=== PATIENT | female | born 1950 | race Caucasian/White ===

== ENCOUNTER → 2017-07-16 | Outpatient (CLI) | payer MEDICARE ==
--- NOTE | 2017-07-19 08:46 | MM ---
Reason for exam: screening (asymptomatic). Last mammogram was performed 2 years and 6 months ago. History: Patient is postmenopausal. Family history of breast cancer in mother at age 52. Physical Findings: A clinical breast exam by your physician is recommended on an annual basis and results should be correlated with mammographic findings. MG 3D Screening Mammo W/Cad Bilateral CC and MLO view(s) were taken. Prior study comparison: January 24, 2015, bilateral MG 3d diag mammo w/cad [facility]. October 24, 2004, mammogram, performed at [facility]. The breast tissue is heterogeneously dense. This may lower the sensitivity of mammography. There are typically benign round dystrophic diffuse and grouped calcifications in both breasts. There is no discrete abnormality. ASSESSMENT: Benign, BI-RAD 2 RECOMMENDATION: Routine screening mammogram of both breasts in 1 year.
== END | disposition home or self-care (01) ==
LOC: RADMAMWWP 10:57
PROVIDERS: ATTEND Family Medicine
DX: Z12.31 Encounter for screening mammogram for malignant neoplasm of breast (principal)
CPT/HCPCS: 77063; 77067

== ENCOUNTER → 2018-07-27 | Outpatient (CLI) | payer MEDICARE ==
--- NOTE | 2018-07-28 09:47 | MM ---
Reason for exam: screening (asymptomatic). Last mammogram was performed 1 year ago. History: Patient is postmenopausal. Family history of breast cancer in mother at age 52. Physical Findings: A clinical breast exam by your physician is recommended on an annual basis and results should be correlated with mammographic findings. MG 3D Screening Mammo W/Cad Bilateral CC and MLO view(s) were taken. Prior study comparison: July 16, 2017, bilateral MG 3d screening mammo w/cad. January 24, 2015, bilateral MG 3d diag mammo w/cad [facility]. The breast tissue is heterogeneously dense. This may lower the sensitivity of mammography. Stable benign calcifications bilaterally. No significant changes when compared with prior studies. ASSESSMENT: Benign, BI-RAD 2 RECOMMENDATION: Routine screening mammogram of both breasts in 1 year.
== END | disposition home or self-care (01) ==
LOC: RADMAMWWP 10:45
PROVIDERS: ATTEND Family Medicine
DX: Z12.31 Encounter for screening mammogram for malignant neoplasm of breast (principal)
CPT/HCPCS: 77063; 77067

== ENCOUNTER 2021-11-11 17:17 | Emergency (ER) | payer MEDICARE ==
--- NOTE | 2021-11-11 18:08 | XR ---
EXAMINATION TYPE: XR knee complete LT DATE OF EXAM: 11/11/2021 COMPARISON: NONE HISTORY: Knee pain TECHNIQUE: 3 views FINDINGS: There is knee joint effusion. There is irregular appearance of the lateral tibial condyle a nd I suspect a tibial plateau fracture with depression. IMPRESSION: There is likely at lateral tibial plateau fracture. Knee joint effusion.
--- NOTE | 2021-11-11 19:07 | ED ---
Extremity Problem HPI - General Chief complaint: Extremity Problem,Nontraumatic Stated complaint: lt knee pain Time Seen by Provider: 11/11/21 18:34 Source: patient, RN notes reviewed Mode of arrival: ambulatory Limitations: no limitations - History of Present Illness Initial comments: Patient is a 71-year-old male presenting to the emergency room with complaints of sudden onset of left knee pain radiating to her lower extremity. She denies any aggravating factors but does report that the symptoms seemed more severe when attempting to get out of a chair. She denies any range of motion impairment or weakness is not related to body habitus, swelling, or pain. She denies any trauma or wounds. She has not had any previous problems with her knees but does admit to being very overweight not being beneficial to them. She denies any other complaints or concerns including any chest pain, shortness of breath, abdominal pain, nausea, vomiting, fevers or chills. She has a past medical history significant for hypertension, hyperlipidemia and hypothyroidism. - Related Data Home Medications Medication Instructions Recorded Confirmed Aspirin [Adult Low Dose Aspirin EC] 81 mg PO DAILY 02/27/15 11/11/21 Atorvastatin [Lipitor] 10 mg PO W/LUNCH 02/27/15 11/11/21 Levothyroxine Sodium [Synthroid] 75 mcg PO DAILY 02/27/15 11/11/21 Lisinopril-Hctz 20-12.5 mg 1 tab PO HS 02/27/15 11/11/21 [Zestoretic 20-12.5] Multivitamins, Thera [Theragran] 1 tab PO DAILY 02/27/15 11/11/21 Vitamin E (Dl,Tocopheryl Acet) 400 unit PO DAILY 02/27/15 11/11/21 [Vitamin E] Cholecalciferol [Vitamin D3 (25 25 mcg PO DAILY 11/11/21 11/11/21 Mcg = 1000 Iu)] amLODIPine [Norvasc] 10 mg PO DAILY 11/11/21 11/11/21 Allergies Allergy/AdvReac Type Severity Reaction Status Date / Time No Known Allergies Allergy Verified 11/11/21 19:07 Review of Systems ROS Statement: Those systems with pertinent positive or pertinent negative responses have been documented in the HPI. ROS Other: All systems not noted in ROS Statement are negative. Past Medical History Past Medical History: Hyperlipidemia, Hypertension, Thyroid Disorder History of Any Multi-Drug Resistant Organisms: None Reported Past Surgical History: Cholecystectomy, Orthopedic Surgery, Tonsillectomy Additional Past Surgical History / Comment(s): ORIF RT ARM. LIVER BIOPSY Past Anesthesia/Blood Transfusion Reactions: Postoperative Nausea & Vomiting (PONV) Past Psychological History: No Psychological Hx Reported Smoking Status: Never smoker Past Alcohol Use History: None Reported Past Drug Use History: None Reported - Past Family History Mother Family Medical History: Cancer Sister(s) Family Medical History: Cancer Brother(s) Family Medical History: Cancer General Exam Limitations: no limitations General appearance: alert, in no apparent distress Head exam: Present: atraumatic, normocephalic, normal inspection Eye exam: Present: normal appearance, PERRL, EOMI. Absent: scleral icterus, conjunctival injection, periorbital swelling ENT exam: Present: normal exam, mucous membranes moist Neck exam: Present: normal inspection Respiratory exam: Present: normal lung sounds bilaterally. Absent: respiratory distress, wheezes, rales, rhonchi, stridor Cardiovascular Exam: Present: regular rate, normal rhythm, normal heart sounds. Absent: systolic murmur, diastolic murmur, rubs, gallop, clicks GI/Abdominal exam: Present: soft, normal bowel sounds. Absent: distended, tenderness, guarding, rebound, rigid Left Knee exam: Present: full ROM, tenderness (Posterior.), swelling, full knee extension. Absent: deformity, crepitus, dislocation, erythema Lower Leg exam: Present: swelling. Absent: tenderness Gait: observed and limited by pain Back exam: Present: normal inspection Neurological exam: Present: alert, oriented X3, CN II-XII intact Psychiatric exam: Present: normal affect, normal mood Skin exam: Present: warm, dry, intact, normal color. Absent: rash Course Vital Signs 11/11/21 11/11/21 17:42 21:34 Temperature 98.5 F 98.2 F Pulse Rate 87 86 Respiratory 20 18 Rate Blood Pressure 150/76 148/78 O2 Sat by Pulse 98 98 Oximetry Medical Decision Making - Medical Decision Making 71-year-old female with left knee pain radiating to her lower extremity. Will begin with x-ray of the left knee and proceed for further di agnostic imaging. The swelling noted however no redness. X-ray right knee negative for acute findings will proceed with CT of the left knee along with Doppler in the setting of acute onset of pain and swelling. CT of the knee negative for acute findings. Doppler not notes posterior cyst (Sawant's cyst) at the location of the start of her pain. Discussed Sawant's cyst findings with patient and treatment protocols. Encouraged range of motion and follow-up with her primary care provider. Avoid advised use of NSAIDs for pain as needed. Case discussed with Dr. Street. Disposition Clinical Impression: Synovial cyst of popliteal space [Sawant], left knee Disposition: HOME SELF-CARE Condition: Stable Instructions (If sedation given, give patient instructions): Sawant Cyst (ED) Additional Instructions: Please utilize Tylenol or ibuprofen [id number] as needed for pain. Please follow-up with your primary care provider. Range of motion and ambulating as tolerated encouraged. Please return to the Emergency Department if symptoms worsen or any other concerns. Is patient prescribed a controlled substance at d/c from ED?: No Referrals: Jose Enrique Franco MD [Primary Care Provider] - 1-2 days Time of Disposition: 21:17
[2021-11-11] MEDS ORDERED: MORPHINE SULFATE 2 MG/ML SYRINGE IM STA (19:13)
--- NOTE | 2021-11-11 19:15 | CT ---
EXAMINATION TYPE: CT knee LT wo con DATE OF EXAM: 11/11/2021 COMPARISON: None HISTORY: pain. no known injury CT DLP: 377.1 mGycm Automated exposure control for dose reduction was used. Images obtained from the distal femur to the proximal tibia with no contrast. There is a moderate knee joint effusion. The patella is intact. The proximal tibia is intact. No evid ence of tibial plateau fracture. There is some spurring of the femoral and tibial condyles. Distal fe mur is intact. IMPRESSION: There is knee joint effusion. No evidence of tibial plateau fracture. There is some hypertrophic mild osteoarthritis.
--- NOTE | 2021-11-11 20:51 | US ---
EXAMINATION TYPE: US venous doppler duplex LE LT DATE OF EXAM: 11/11/2021 8:44 PM COMPARISON: NONE CLINICAL HISTORY: pain swelling no injury. left leg pain SIDE PERFORMED: Left TECHNIQUE: The lower extremity deep venous system is examined utilizing real time linear array sonog danie with graded compression, doppler sonography and color-flow sonography. VESSELS IMAGED: Common Femoral Vein Deep Femoral Vein Greater Saphenous Vein * Femoral Vein Popliteal Vein Small Saphenous Vein * Proximal Calf Veins (* superficial vessels) Left Leg: Negative for DVT. Sawant's cyst seen in pop fossa measuring 4.1 x 3.7 x 2.0 cm. IMPRESSION: There is a popliteal cyst. No evidence of deep vein thrombosis in the left leg
[2021-11-11 21:35] VITALS: BP 148/78; PULSE 86; RESP 18; TEMP 98.2
== END 2021-11-11 21:34 | disposition home or self-care (01) ==
LOC: EC 17:17
DX: M71.30 Other bursal cyst, unspecified site (principal); E78.5 Hyperlipidemia, unspecified; I10 Essential (primary) hypertension; E07.9 Disorder of thyroid, unspecified; Z79.899 Other long term (current) drug therapy
CPT/HCPCS: 73562; 93971; 73700; 99284; 96372; J2270

== ENCOUNTER → 2022-03-11 | Day surgery (SDC) | payer MEDICARE ==
[2022-03-09 13:39] VITALS: BMI 50.0
[~2022-03-11] MED LIST: LACTATED RINGERS 1,000 ML IV SCH; PROPOFOL 10 MG/ML 20 ML VIAL IV ONE
--- NOTE | 2022-03-11 07:51 | P.GSHP ---
History of Present Illness H&P Date: 03/11/22 CHIEF COMPLAINT: Colon screen HISTORY OF PRESENT ILLNESS: The patient is a 71-year-old female who presents for colon screen. Lower endoscopy was offered for further evaluation and management. PAST MEDICAL HISTORY: Please see list. PAST SURGICAL HISTORY: Please see list. MEDICATIONS: Please see list. ALLERGIES: Please see list. SOCIAL HISTORY: No illicit drug use FAMILY HISTORY: No reports of Crohn disease or ulcerative colitis. REVIEW OF ORGAN SYSTEMS: CONSTITUTIONAL: No reports of fevers or chills. PHYSICAL EXAM: VITAL SIGNS: Stable GENERAL: Well-developed pleasant in no acute distress. HEENT: No scleral icterus. Extraocular movements grossly intact. Moist buccal mucosa. NECK: Supple without lymphadenopathy. CHEST: Unlabored respirations. Equal bilateral excursions. CARDIOVASCULAR: Regular rate and rhythm. Distal 2+ pulses. ABDOMEN: Soft, nontender, nondistended. MUSCULOSKELETAL: No clubbing, cyanosis, or edema. ASSESSMENT: 1. Colon screen. PLAN: 1. Recommend proceeding with a lower endoscopy Past Medical History Past Medical History: Hyperlipidemia, Hypertension, Osteoarthritis (OA), Thyroid Disorder History of Any Multi-Drug Resistant Organisms: None Reported Past Surgical History: Cholecystectomy, Orthopedic Surgery, Tonsillectomy Additional Past Surgical History / Comment(s): ORIF RIGHT ARM, LIVER BIOPSY, bilateral cataract surgery, colonoscopy. Past Anesthesia/Blood Transfusion Reactions: Postoperative Nausea & Vomiting (PONV) Past Psychological History: No Psychological Hx Reported Smoking Status: Never smoker Past Alcohol Use History: None Reported Past Drug Use History: None Reported - Past Family History Mother Family Medical History: Cancer Sister(s) Family Medical History: Cancer Brother(s) Family Medical History: Cancer, Pulmonary Embolus Medications and Allergies Home Medications Medication Instructions Recorded Confirmed Type Aspirin [Adult Low Dose Aspirin EC] 81 mg PO DAILY 02/27/15 03/09/22 History Atorvastatin [Lipitor] 10 mg PO DAILY@1100 02/27/15 03/09/22 History Levothyroxine Sodium [Synthroid] 75 mcg PO DAILY@1100 02/27/15 03/09/22 History Lisinopril-Hctz 20-12.5 mg 1 tab PO DAILY@1100 02/27/15 03/09/22 History [Zestoretic 20-12.5] Multivitamins, Thera [Theragran] 1 tab PO DAILY 02/27/15 03/09/22 History Vitamin E (Dl,Tocopheryl Acet) 400 unit PO DAILY 02/27/15 03/09/22 History [Vitamin E] Cholecalciferol [Vitamin D3 (25 25 mcg PO DAILY 11/11/21 03/09/22 History Mcg = 1000 Iu)] amLODIPine [Norvasc] 10 mg PO DAILY@1100 11/11/21 03/09/22 History Allergies Allergy/AdvReac Type Severity Reaction Status Date / Time No Known Allergies Allergy Verified 03/09/22 13:27
[2022-03-11 08:12] VITALS: TEMP 98.2
[2022-03-11 08:52] VITALS: RESP 16
[2022-03-11 09:02] VITALS: BP 144/71; PULSE 73
--- NOTE | 2022-03-11 09:07 | P.PCN ---
Date of Procedure: 03/11/22 Description of Procedure: PREOPERATIVE DIAGNOSIS: Personal history of colon polyps POSTOPERATIVE DIAGNOSIS: Tubular adenoma ascending colon Tubular adenoma transverse colon Pain and diverticulosis Internal hemorrhoids, grade 3 OPERATION: Colonoscopy to the ileocecal valve and appendiceal orifice, cecum Colonoscopy with hot snare polypectomy Colonoscopy with cold forceps biopsy SURGEON: Charmaine Lin MD. ANESTHESIA: MAC. INDICATIONS: The patient is an 64-year-old male who presents family history of malignant colon polyps and personal history of colon polyps. Last colonoscopy 5 years. Benefits and risks were described and informed consent was obtained. DESCRIPTION OF PROCEDURE: The patient had undergone Miralax prep. The patient had been brought into the operating room and laid in the left lateral decubitus position. After adequate intravenous sedation, the rectum was examined with 2% lidocaine jelly. External hemorrhoids were encountered. The rectal tone was within normal limits. No lesions were palpated in the rectal vault. An Olympus colonoscope was advanced until the cecum, ileocecal valve and appendiceal orifice were clearly viewed. The prep was good. Sigmoid diverticulosis with pandiverticulosis was encountered. Colonic polyps were found and removed. No evidence of focal colitis was found. Retroflexion of the scope demonstrated grade 3 internal hemorrhoids without active bleeding or inflammation. The colon was desufflated. The patient had tolerated the procedure well. Withdrawal time was over 6 minutes. FINDINGS: Aronchick preparation quality scale 2 (1-5) Internal hemorrhoids, grade 3 External hemorrhoids, grade 3. No arteriovenous malformations. Sigmoid diverticulosis with pandiverticulosis Removal of 2 polyps: - Cold forceps biopsy at ascending colon, 4 mm polyp. - Cold forceps biopsy at mid transverse colon, 5 mm polyp. No focal colitis. RECOMMENDATIONS: Repeat colonoscopy 3 years, 2024 Plan - Discharge Summary Discharge Rx Participant: No New Discharge Prescriptions: Continue Vitamin E (Dl,Tocopheryl Acet) [Vitamin E (400 Iu = 180 mg)] 400 unit PO DAILY Lisinopril-Hctz 20-12.5 mg [Zestoretic 20-12.5] 1 tab PO DAILY@1100 Levothyroxine Sodium [Synthroid] 75 mcg PO DAILY@1100 Atorvastatin [Lipitor] 10 mg PO DAILY@1100 Multivitamins, Thera [Multivitamin (formulary)] 1 tab PO DAILY Aspirin [Adult Low Dose Aspirin EC] 81 mg PO DAILY Cholecalciferol [Vitamin D3 (25 Mcg = 1000 Iu)] 25 mcg PO DAILY amLODIPine [Norvasc] 10 mg PO DAILY@1100 Discharge Medication List Aspirin [Adult Low Dose Aspirin EC] 81 mg PO DAILY 02/27/15 [History] Atorvastatin [Lipitor] 10 mg PO DAILY@1100 02/27/15 [History] Levothyroxine Sodium [Synthroid] 75 mcg PO DAILY@1100 02/27/15 [History] Lisinopril-Hctz 20-12.5 mg [Zestoretic 20-12.5] 1 tab PO DAILY@1100 02/27/15 [History] Multivitamins, Thera [Multivitamin (formulary)] 1 tab PO DAILY 02/27/15 [History] Vitamin E (Dl,Tocopheryl Acet) [Vitamin E (400 Iu = 180 mg)] 400 unit PO DAILY 02/27/15 [History] Cholecalciferol [Vitamin D3 (25 Mcg = 1000 Iu)] 25 mcg PO DAILY 11/11/21 [History] amLODIPine [Norvasc] 10 mg PO DAILY@1100 11/11/21 [History] Follow up Appointment(s)/Referral(s): Charmaine Lin MD [STAFF PHYSICIAN] - As Needed Patient Instructions/Handouts: *Surgery [facility] - (Anesthesia) Endoscopy Discharge Instructions, Diverticulosis (ED), Colorectal Polyps (GEN), Diverticulosis Diet (GEN), Colonoscopy (DC), Upper Endoscopy (DC) Activity/Diet/Wound Care/Special Instructions: Repeat colonoscopy 3 years, 2024 Discharge Disposition: HOME SELF-CARE
== END | disposition home or self-care (01) ==
LOC: ORWHC2ENDO 07:38
PROVIDERS: ATTEND Surgery Plastic and Reconstructive Surgery
DX: Z12.11 Encounter for screening for malignant neoplasm of colon (principal); D12.2 Benign neoplasm of ascending colon; K57.30 Diverticulosis of large intestine without perforation or abscess without bleeding; K64.2 Third degree hemorrhoids; I10 Essential (primary) hypertension; E78.5 Hyperlipidemia, unspecified; M19.90 Unspecified osteoarthritis, unspecified site; E07.9 Disorder of thyroid, unspecified; Z90.89 Acquired absence of other organs; Z90.49 Acquired absence of other specified parts of digestive tract; Z86.010 Personal history of colon polyps; Z80.0 Family history of malignant neoplasm of digestive organs; Z79.82 Long term (current) use of aspirin; Z79.899 Other long term (current) drug therapy
CPT/HCPCS: 45385; 88305; 45380; J2704

== ENCOUNTER → 2024-01-18 | Outpatient (CLI) | payer MEDICARE ==
--- NOTE | 2024-01-19 18:35 | US ---
EXAMINATION TYPE: US kidneys/renal and bladder DATE OF EXAM: 01/18/2024 COMPARISON: NONE CLINICAL INDICATION: Female, 73 years old with history of N18.4 CHRONIC KIDNEY STAGE 4; Nausea - on l asix for BL LE swelling TECHNIQUE: Grayscale imaging of the bilateral kidneys and urinary bladder: FINDINGS: EXAM MEASUREMENTS: Right Kidney: 12.6 x 6.4 x 5.4 cm Left Kidney: 10.4 x 6.3 x 4.8 cm Post Void Residual Volume: NA mL Right Kidney: Anechoic cystic structures noted - otherwise WNL . The largest measures 2 x 2.4 x 2.3 cm in the mid right kidney Left Kidney: Anechoic cystic structures noted - otherwise WNL Bladder: WNL Bilateral Jets seen: Yes Normal Post Void Residual: NA There is no evidence for hydronephrosis at this point in time. No nephrolithiasis is seen. No judit s are identified. The urinary bladder is anechoic. Incidental - ? cystic structure on left ovary . This measures 4.9 x 3.8 IMPRESSION: 1. Bilateral renal cysts. 2. Left ovarian cyst likely present. [facility], , 01/19/2024 6:32 PM
== END | disposition home or self-care (01) ==
LOC: RADUSWWP 11:12
PROVIDERS: ATTEND Family Medicine
DX: N18.4 Chronic kidney disease, stage 4 (severe) (principal); N28.1 Cyst of kidney, acquired; N83.202 Unspecified ovarian cyst, left side
CPT/HCPCS: 76770

== ENCOUNTER 2024-07-05 18:05 | Inpatient (IN) | payer MEDICARE ==
[2024-07-05 20:47] LABS: Basophils # (A) 0.02 10*3/uL (0.00-0.10); Basophils % (A) 0.2 %; Eosinophils # (A) 0.52 10*3/uL (0.04-0.35); HCT 25.8 % (37.2-46.3); HGB 8.8 g/dL (12.0-15.0); Lymphocytes # (A) 1.23 10*3/uL (0.90-5.00); Lymphocytes % (A) 11.8 %; MCH 29.6 pg (27.0-32.0); MCHC 34.1 g/dL (32.0-37.0); MCV 86.9 fL (80.0-97.0); Mean Platelet Volume 11.2 fL (9.5-12.2); Monocytes # (A) 0.58 10*3/uL (0.20-1.00); Monocytes % (A) 5.6 %; Neutrophils # (A) 8.06 10*3/uL (1.80-7.70); Neutrophils % (A) 77.1 %; Platelet Count 164 10*3/uL (140-440); RBC 2.97 10*6/uL (4.10-5.20); RDW 13.8 % (11.5-14.5); WBC 10.44 10*3/uL (4.50-10.00)
[2024-07-05 20:59] LABS: ALT 32 U/L (4-34); AST 25 U/L (14-36); African American GFR (CKD) 15 (>60 ml/min/1.73 sqM); Albumin 4.2 g/dL (3.5-5.0); Alkaline Phosphatase 82 U/L (38-126); Anion Gap 16 mmol/L; Carbon Dioxide 12 mmol/L (22-30); Chloride 109 mmol/L (98-107); Glucose 91 mg/dL (74-99); Non-African American GFR(CKD) 13 (>60 ml/min/1.73 sqM); Sodium 137 mmol/L (137-145); Total Bilirubin 1.7 mg/dL (0.2-1.3); Total Protein 7.7 g/dL (6.3-8.2)
[2024-07-05 21:13] LABS: Blood Urea Nitrogen 104 mg/dL (7-17); Potassium 6.2 mmol/L (3.5-5.1)
[2024-07-05] MEDS: DEXTROSE 10% IN WATER 500 ML in EMPTY BAG 1 BAG IV SCH (22:01)
[2024-07-05] MEDS: ALBUTEROL NEB (CONC) 2.5 MG/0.5 ML INHALATION ONE (22:04)
[2024-07-05] MEDS: DEXTROSE 50% SYRINGE 50 ML IVP ONE (22:06)
[2024-07-05] MEDS: INSULIN REGULAR 100 UNIT/ML VIAL (IV) IV ONE (22:07)
[2024-07-05] MEDS: SODIUM ZIRCONIUM CYCLOSILICATE 10 GM PACKET PO ONE (22:16)
[2024-07-05] MEDS: SODIUM BICARB 8.4% 50 ML SYR (1 MEQ/ML) IV STA ×2 (22:18)
--- NOTE | 2024-07-05 22:26 | CT ---
EXAMINATION TYPE: CT abdomen pelvis wo con DATE OF EXAM: 07/05/2024 10:01 PM COMPARISON: CT abdomen pelvis most recent from 11/04/2010. CLINICAL INDICATION: Female, 74 years old with history of hematochezia, acute renal failure; Hematoch ezia, acute renal failure. TECHNIQUE: Axial CT abdomen pelvis wo con;Sagittal and coronal reformats were created on a separate workstation. Contrast used: mL of , (none if empty) Oral contrast used: without Oral Contrast (none if empty) CT DLP: 1461.7 mGycm, Automated exposure control for dose reduction was used. FINDINGS: LOWER CHEST: simple appearing cyst in the right lower lung. ABDOMEN LIVER: Unremarkable GALLBLADDER AND BILE DUCTS: The gallbladder surgically absent. PANCREAS: Unremarkable. SPLEEN: Unremarkable. ADRENAL GLANDS: Fat-containing lesion within the left renal gland measuring 16 mm. KIDNEYS AND URETERS: No evidence of hydronephrosis or obstructing renal calculus. The ureters are unr emarkable. 23 mm renal cortical cyst on the right no follow-up recommended. 23 mm renal cortical c yst on the right no follow-up recommended. PELVIS BLADDER: No evidence for wall thickening or mass given limitations of exam. REPRODUCTIVE:Left ovarian cyst measuring up to 44 mm. ABDOMEN & PELVIS STOMACH AND BOWEL: No evidence of bowel obstruction. PERITONEUM/RETROPERITONEUM: No evidence of pneumoperitoneum or free fluid. VASCULATURE: No evidence of aortic aneurysm. MUSCULOSKELETAL: No acute osseous abnormalities. Moderate disc degeneration changes are present throu ghout the thoracolumbar spine. Grade 1 anterolisthesis of L3 on L4. LYMPH NODES: No gross evidence for lymphadenopathy. SOFT TISSUE/ABDOMINAL WALL: Unremarkable IMPRESSION: 1. High density layering debris within the cecum and ascending colon concerning for gastrointestinal hemorrhage. Surgical consultation recommended. 2. Left adrenal myelolipoma no follow-up recommended. 3. Left ovarian cyst measuring up to 44 mm. Consider follow-up with ultrasound imaging for stability . Findings communicated to Nirav Holland PAC on 07/05/2024 10:[address] Leonel Fortune [facility], , 07/05/2024 10:24 PM
[2024-07-05] MEDS: CALCIUM GLUCONATE IN NACL 1 GM in SALINE 1 100ML.BAG IVPB ONE (22:53)
[2024-07-05] MEDS: DEXTROSE 5% IN WATER 1,000 ML with SODIUM BICARB (1 MEQ/ML) 150 ML IV SCH (23:01)
[2024-07-05] MEDS ORDERED: NALOXONE 0.4 MG/ML 1 ML VIAL IV PRN (23:11)
--- NOTE | 2024-07-05 23:16 | ED ---
GI Bleed HPI - General Chief complaint: GI Bleed Stated complaint: Bleeding from the rectum Time Seen by Provider: 07/05/24 18:23 Source: patient Mode of arrival: wheelchair Limitations: no limitations - History of Present Illness Initial comments: 74-year-old female with history of hypertension, hyperlipidemia, hypothyroidism, presenting with chief complaint of rectal bleeding. Patient reports that today she had a large amount of blood in the toilet. She then took a shower and afterwards noted continued bleeding. She reports that she has had some intermittent rectal bleeding for few weeks now. She thought nothing of it as often times she would only see blood on the toilet paper and she has a known history of hemorrhoids. She does get some rectal pain when having a bowel movement. She denies any abdominal pain. No blood thinners. She does take aspirin 81 mg. No nausea or vomiting. No fevers or chills. No urinary symptoms. No chest pain or difficulty breathing. No weakness or dizziness. - Related Data Home Medications Medication Instructions Recorded Confirmed Levothyroxine Sodium [Synthroid] 75 mcg PO [id number] 02/27/15 07/06/24 Acetaminophen Tab [Tylenol Tab] 1,000 mg PO Q6HR PRN 07/06/24 07/06/24 Atorvastatin Calcium [Lipitor] 40 mg PO W/SUPPER 07/06/24 07/06/24 Furosemide [Lasix] 20 mg PO HS 07/06/24 07/06/24 Semaglutide [Ozempic] 0.25 mg SQ TU 07/06/24 07/06/24 Spironolactone [Aldactone] 50 mg PO HS 07/06/24 07/06/24 lisinopriL [Zestril] 10 mg PO W/SUPPER 07/06/24 07/06/24 Allergies Allergy/AdvReac Type Severity Reaction Status Date / Time No Known Allergies Allergy Verified 07/06/24 08:40 Review of Systems ROS Statement: Those systems with pertinent positive or pertinent negative responses have been documented in the HPI. ROS Other: All systems not noted in ROS Statement are negative. Past Medical History Past Medical History: Hyperlipidemia, Hypertension, Osteoarthritis (OA), Thyroid Disorder History of Any Multi-Drug Resistant Organisms: None Reported Past Surgical History: Cholecystectomy, Orthopedic Surgery, Tonsillectomy Additional Past Surgical History / Comment(s): ORIF RIGHT ARM, LIVER BIOPSY, bilateral cataract surgery, colonoscopy. Past Anesthesia/Blood Transfusion Reactions: Postoperative Nausea & Vomiting (PONV) Past Psychological History: No Psychological Hx Reported Smoking Status: Never smoker Past Alcohol Use History: None Reported Past Drug Use History: None Reported - Past Family History Mother Family Medical History: Cancer Sister(s) Family Medical History: Cancer Brother(s) Family Medical History: Cancer, Pulmonary Embolus General Exam Limitations: no limitations General appearance: alert, in no apparent distress Head exam: Present: atraumatic, normocephalic, normal inspection Eye exam: Present: normal appearance, EOMI Neck exam: Present: normal inspection. Absent: meningismus Respiratory exam: Present: normal lung sounds bilaterally. Absent: respiratory distress, wheezes, rales, rhonchi, stridor Cardiovascular Exam: Present: regular rate, normal rhythm, normal heart sounds. Absent: systolic murmur, diastolic murmur, rubs, gallop, clicks GI/Abdominal exam: Present: soft. Absent: distended, tenderness, guarding, rebound, rigid Rectal exam: Present: normal rectal tone, heme (+) stool, bloody stool, hemor rhoids Neurological exam: Present: alert, oriented X3 Psychiatric exam: Present: normal affect, normal mood Skin exam: Present: warm, dry, normal color Course Vital Signs 07/05/24 07/05/24 07/05/24 18:06 22:06 22:16 Temperature 97.9 F Pulse Rate 97 100 98 Respiratory 18 Rate Blood Pressure 141/76 O2 Sat by Pulse 99 Oximetry 07/05/24 07/06/24 07/06/24 23:12 02:33 04:31 Temperature 98.6 F 98.5 F Pulse Rate 96 81 78 Respiratory 19 19 15 Rate Blood Pressure 114/50 96/44 138/58 O2 Sat by Pulse 97 97 96 Oximetry 07/06/24 07/06/24 07/06/24 06:26 08:22 12:40 Temperature 98.4 F Pulse Rate 79 77 76 Respiratory 18 18 18 Rate Blood Pressure 102/53 122/42 109/67 O2 Sat by Pulse 98 99 96 Oximetry 07/06/24 07/06/24 16:38 18:04 Temperature 97.9 F 98.1 F Pulse Rate 85 85 Respiratory 20 18 Rate Blood Pressure 104/51 104/42 O2 Sat by Pulse 97 100 Oximetry Medical Decision Making - Medical Decision Making 74-year-old female presenting with chief complaint of rectal bleeding. Has been ongoing intermittently for a few weeks but seem to be acutely worse today. History and physical examination are conducted. Patient does have hemorrhoids on rectal exam and there is cornelio blood seen. Hemoglobin 8.8. Hemodynamically stable. BUN 104 creatinine 3.22 GFR 13. No previous values for comparison. Patient does report that she has had a history of chronic kidney disease that her PCP attributes to putting her on a water pill. She states that she has been on and off of the water pill for her swelling when it affects her renal function. She currently takes furosemide and spironolactone. Patient started on 2 mEq of bicarb IV push and 3 A of bicarb on the drip at 100 mL/h per nephrology. Potassium 6.2, she is given insulin and dextrose, albuterol, Lokelma. CT shows evidence of high density layering debris within the cecum and ascending colon concerning for gastrointestinal hemorrhage. Patient will be admitted. Consults are placed to GI and nephrology. Patient is agreeable with this plan. I discussed this case with my attending Dr. Ruvalcaba Was pt. sent in by a medical professional or institution (, PA, EVAPORATOR REPAIRER, urgent care, hospital, or skilled nursing...) When possible be specific @ -No Did you speak to anyone other than the patient for history (EMS, parent, family, police, friend...)? What history was obtained from this source @ -No Did you review nursing and triage notes (agree or disagree)? Why? @ -I reviewed and agree with nursing and triage notes Were old charts reviewed (outside hosp., previous admission, EMS record, old EKG, old radiological studies, urgent care reports/EKG's, skilled nursing records)? Report findings @ -No old charts were reviewed Differential Diagnosis (chest pain, altered mental status, abdominal pain women, abdominal pain men, vaginal bleeding, weakness, fever, dyspnea, syncope, headache, dizziness, GI bleed, back pain, seizure, CVA, palpatations, mental health, musculoskeletal)? @ -MDM Differential GI Bleed: Esophageal varices, aortoenteric fistula, Alisia-Hamilton, gastritis, peptic ulcer disease, diverticulosis, inflammatory bowel disease, hemorrhoids, fissure, colitis, malignancy, Meckel’s diverticulum… this is not meant to be an all-inclusive list. EKG interpreted by me (3pts min.). @ -As above X-rays interpreted by me (1pt min.). @ -None done CT interpreted by me (1pt min.). @ -CT shows high density layering debris within the cecum and ascending colon concerning for gastrointestinal hemorrhage. Surgical consultation recommended. 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 Left ovarian cyst measuring up to 44 mm. Consider follow-up with ultrasound imaging for stability U/S interpreted by me (1pt. min.). @ -None done What testing was considered but not performed or refused? (CT, X-rays, U/S, labs)? Why? @ -None What meds were considered but not given or refused? Why? @ -None Did you discuss the management of the patient with other professionals (professionals i.e. , PA, EVAPORATOR REPAIRER, lab, RT, psych nurse, bilingual social worker, schedule checker, teacher, chief lifestyle officer, transplant case manager)? Give summary @ -Spoke with Dr. Ariza who accepts admission Was smoking cessation discussed for >3mins.? @ -No Was critical care preformed (if so, how long)? @ -No Were there social determinants of health that impacted care today? How? (Dieter elessness, low income, unemployed, alcoholism, drug addiction, transportation, low edu. Level, literacy, decrease access to med. care, fpc, rehab)? @ -No Was there de-escalation of care discussed even if they declined (Discuss DNR or withdrawal of care, Hospice)? DNR status @ -No What co-morbidities impacted this encounter? (DM, HTN, Smoking, COPD, CAD, Cancer, CVA, ARF, Chemo, Hep., AIDS, mental health diagnosis, sleep apnea, morbid obesity)? @ -None Was patient admitted / discharged? Hospital course, mention meds given and route, prescriptions, significant lab abnormalities, going to OR and other pertinent info. @ -Admitted, see above for details Undiagnosed new problem with uncertain prognosis? @ -No Drug Therapy requiring intensive monitoring for toxicity (Heparin, Nitro, Insulin, Cardizem)? @ -No Were any procedures done? @ -No Diagnosis/symptom? @ -GI bleed, acute renal failure Acute, or Chronic, or Acute on Chronic? @ -Acute Uncomplicated (without systemic symptoms) or Complicated (systemic symptoms)? @ -Complicated Side effects of treatment? @ -No Exacerbation, Progression, or Severe Exacerbation? @ -No Poses a threat to life or bodily function? How? (Chest pain, [place], [place], pneumonia, PE, COPD, DKA, ARF, appy, cholecystitis, CVA, Diverticulitis, Homicidal, Suic idal, threat to staff... and all critical care pts) @ -Yes - Lab Data Result diagrams: 07/06/24 14:58 07/06/24 14:58 Lab Results 07/05/24 07/05/24 07/05/24 Range/Units 19:06 20:33 20:33 WBC 10.44 H (4.50-10.00) 10*3/uL RBC 2.97 L (4.10-5.20) 10*6/uL Hgb 8.8 L (12.0-15.0) g/dL Hct 25.8 L (37.2-46.3) % MCV 86.9 (80.0-97.0) fL MCH 29.6 (27.0-32.0) pg MCHC 34.1 (32.0-37.0) g/dL Plt Count 164 (140-440) 10*3/uL MPV 11.2 (9.5-12.2) fL Immature Gran % (Auto) 0.3 % Neutrophils % 77.1 % Lymphocytes % 11.8 % Monocytes % 5.6 % Eosinophils % 5.0 % Basophils % 0.2 % Immature Gran # 0.03 (0.00-0.04) 10*3/uL Neutrophils # 8.06 H (1.80-7.70) 10*3/uL Lymphocytes # 1.23 (0.90-5.00) 10*3/uL Monocytes # 0.58 (0.20-1.00) 10*3/uL Eosinophils # 0.52 H (0.04-0.35) 10*3/uL Basophils # 0.02 (0.00-0.10) 10*3/uL PT (10.0-12.5) sec INR (<1.2) APTT (22.0-30.0) sec Sodium 137 (137-145) mmol/L Potassium 6.2 H* (3.5-5.1) mmol/L Chloride 109 H (98-107) mmol/L Carbon Dioxide 12 L (22-30) mmol/L Anion Gap 16 mmol/L BUN 104 H* (7-17) mg/dL Creatinine 3.22 H (0.52-1.04) mg/dL Est GFR (CKD-EPI)AfAm 15 (>60 ml/min/1.73 sqM) Est GFR (CKD-EPI)NonAf 13 (>60 ml/min/1.73 sqM) Glucose 91 (74-99) mg/dL Calcium 10.0 (8.4-10.2) mg/dL Total Bilirubin 1.7 H (0.2-1.3) mg/dL AST 25 (14-36) U/L ALT 32 (4-34) U/L Alkaline Phosphatase 82 (38-126) U/L Total Protein 7.7 (6.3-8.2) g/dL Albumin 4.2 (3.5-5.0) g/dL Urine Color Urine Appearance (Clear) Urine pH (5.0-8.0) Ur Specific [place] (1.001-1.035) Urine Protein (Negative) Urine Glucose (UA) (Negative) Urine Ketones (Negative) Urine Blood (Negative) Urine Nitrite (Negative) Urine Bilirubin (Negative) Urine Urobilinogen (<2.0) mg/dL Ur Leukocyte Esterase (Negative) Stool Occult Blood Positive H (Negative) 07/05/24 07/05/24 Range/Units 23:08 23:08 WBC (4.50-10.00) 10*3/uL RBC (4.10-5.20) 10*6/uL Hgb (12.0-15.0) g/dL Hct (37.2-46.3) % MCV (80.0-97.0) fL MCH (27.0-32.0) pg MCHC (32.0-37.0) g/dL Plt Count (140-440) 10*3/uL MPV (9.5-12.2) fL Immature Gran % (Auto) % Neutrophils % % Lymphocytes % % Monocytes % % Eosinophils % % Basophils % % Immature Gran # (0.00-0.04) 10*3/uL Neutrophils # (1.80-7.70) 10*3/uL Lymphocytes # (0.90-5.00) 10*3/uL Monocytes # (0.20-1.00) 10*3/uL Eosinophils # (0.04-0.35) 10*3/uL Basophils # (0.00-0.10) 10*3/uL PT 10.9 (10.0-12.5) sec INR 1.0 (<1.2) APTT 20.9 L (22.0-30.0) sec Sodium (137-145) mmol/L Potassium (3.5-5.1) mmol/L Chloride (98-107) mmol/L Carbon Dioxide (22-30) mmol/L Anion Gap mmol/L BUN (7-17) mg/dL Creatinine (0.52-1.04) mg/dL Est GFR (CKD-EPI)AfAm (>60 ml/min/1.73 sqM) Est GFR (CKD-EPI)NonAf (>60 ml/min/1.73 sqM) Glucose (74-99) mg/dL Calcium (8.4-10.2) mg/dL Total Bilirubin (0.2-1.3) mg/dL AST (14-36) U/L ALT (4-34) U/L Alkaline Phosphatase (38-126) U/L Total Protein (6.3-8.2) g/dL Albumin (3.5-5.0) g/dL Urine Color Colorless Urine Appearance Clear (Clear) Urine pH 5.0 (5.0-8.0) Ur Specific [place] 1.008 (1.001-1.035) Urine Protein Negative (Negative) Urine Glucose (UA) Negative (Negative) Urine Ketones Negative (Negative) Urine Blood Negative (Negative) Urine Nitrite Negative (Negative) Urine Bilirubin Negative (Negative) Urine Urobilinogen <2.0 (<2.0) mg/dL Ur Leukocyte Esterase Negative (Negative) Stool Occult Blood (Negative) Disposition Clinical Impression: GI bleed, Acute on chronic renal failure Disposition: ADMITTED IP TO THIS [facility] Condition: Serious Time of Disposition: 23:16
[2024-07-05 23:37] LABS: Prothrombin Time 10.9 sec (10.0-12.5)
[2024-07-05 23:44] LABS: Partial Thromboplastin Time 20.9 sec (22.0-30.0)
--- NOTE | 2024-07-05 23:44 | P.HPIM ---
History of Present Illness H&P Date: 07/05/24 Chief Complaint: ANGELLA Ayoub is a 74 Yo female with a past medical history of primary hypertension hypothyroid disorder She presents to the hospital today complaining of rectal bleeding. She reports that she has been having on and off rectal bleeding that has been present for about a few weeks. She reports that she had thought nothing of it as the rectal bleeding had slowly improved and expresses that she had only noticed it when she was wiping. However expresses that today she had gone to the bathroom she had noticed that there was quite a significant mount of blood in the toilet bowl and expresses that she had then gone to the shower after she was done with showering she expresses that she had to go to the bathroom again and noticed that she was having rectal bleeding concurrently. Given her symptoms she then decided to come to the hospital for evaluation When she had presented to hospital she was noted to be hemodynamically stable with the initial blood pressure noted be 141/76. She was 98% room air and heart rate was 97. In addition she was afebrile with a temperature of 97.9. Lab work obtained in the ER revealed a white blood cell count of 10.4 hemoglobin is 8.4 MCV was 87 platelet count was 164. CMP had shown a potassium of 6.2 CO2 of 12 BUN of 104 and creatinine of 3.22. Stool Hemoccult was positive CT abdomen pelvis without contrast had revealed high density layering debris in the cecum and ascending colon concerning for gastrointestinal hemorrhage. There is a left adrenal myolipoma along with a left ovarian cyst. The patient was then treated with calcium gluconate 1 g along with insulin and dextrose. She was then started on insulin/dextrose along with Lokelma When speaking to the patient she reports that she had a left heart catheterization within the last 10 years. She reports that she did not have any intervention and was informed that she does not have any coronary artery disease. She reports that she had a somewhat positive stress test leading to the left heart catheterization. She reports that she takes aspirin 81 mg daily for primary prevention. Review of Systems Pertinent positives and negatives as discussed in HPI, a complete review of systems was performed and all other systems are negative. Past Medical History Past Medical History: Hyperlipidemia, Hypertension, Osteoarthritis (OA), Thyroid Disorder History of Any Multi-Drug Resistant Organisms: None Reported Past Surgical History: Cholecystectomy, Orthopedic Surgery, Tonsillectomy Additional Past Surgical History / Comment(s): ORIF RIGHT ARM, LIVER BIOPSY, bilateral cataract surgery, colonoscopy. Past Anesthesia/Blood Transfusion Reactions: Postoperative Nausea & Vomiting (PONV) Past Psychological History: No Psychological Hx Reported Smoking Status: Never smoker Past Alcohol Use History: None Reported Past Drug Use History: None Reported - Past Family History Mother Family Medical History: Cancer Sister(s) Family Medical History: Cancer Brother(s) Family Medical History: Cancer, Pulmonary Embolus Medications and Allergies Home Medications Medication Instructions Recorded Confirmed Type Aspirin [Adult Low Dose Aspirin EC] 81 mg PO DAILY 02/27/15 03/11/22 History Atorvastatin [Lipitor] 10 mg PO DAILY@1100 02/27/15 03/11/22 History Levothyroxine Sodium [Synthroid] 75 mcg PO DAILY@1100 02/27/15 03/11/22 History Lisinopril-Hctz 20-12.5 mg 1 tab PO DAILY@1100 02/27/15 03/11/22 History [Zestoretic 20-12.5] Multivitamins, Thera [Multivitamin 1 tab PO DAILY 02/27/15 03/11/22 History (formulary)] Vitamin E (Dl,Tocopheryl Acet) 400 unit PO DAILY 02/27/15 03/11/22 History [Vitamin E (400 Iu = 180 mg)] Cholecalciferol [Vitamin D3 (25 25 mcg PO DAILY 11/11/21 03/11/22 History Mcg = 1000 Iu)] amLODIPine [Norvasc] 10 mg PO DAILY@1100 11/11/21 03/11/22 History Allergies Allergy/AdvReac Type Severity Reaction Status Date / Time No Known Allergies Allergy Verified 03/11/22 08:05 Physical Exam Vitals: Vital Signs Temp Pulse Resp BP Pulse Ox 07/05/24 23:12 96 19 114/50 97 07/05/24 22:16 98 07/05/24 22:06 100 07/05/24 18:06 97.9 F 97 18 141/76 99 Intake and Output 07/05/24 07/05/24 07/06/24 14:59 22:59 06:59 Other: Weight 121.109 kg General: non toxic, no distress, female Derm: warm, dry Head: atraumatic, normocephalic, symmetric Eyes: EOMI, no lid lag, anicteric sclera ENT: Nose and ears atraumatic, no thrush, no pharyngeal erythema Neck: No thyromegaly, no cervical lymphadenopathy, trachea midline, supple Mouth: no lip lesion, mucus membranes moist Cardiovascular: S1S2 reg, no murmu Lungs: clear to ascultation bilatera Abdominal: soft, nontender to palpation Ext: no gross muscle atrophy Neuro: Moving all extremity spontaneously Psych: Alert, oriented, appropriate affect Results CBC & Chem 7: 07/05/24 20:33 07/05/24 20:33 Labs: Abnormal Lab Results - Last 24 Hours (Table) 07/05/24 07/05/24 07/05/24 Range/Units 19:06 20:33 20:33 WBC 10.44 H (4.50-10.00) 10*3/uL RBC 2.97 L (4.10-5.20) 10*6/uL Hgb 8.8 L (12.0-15.0) g/dL Hct 25.8 L (37.2-46.3) % Neutrophils # 8.06 H (1.80-7.70) 10*3/uL Eosinophils # 0.52 H (0.04-0.35) 10*3/uL Potassium 6.2 H* (3.5-5.1) mmol/L Chloride 109 H (98-107) mmol/L Carbon Dioxide 12 L (22-30) mmol/L BUN 104 H* (7-17) mg/dL Creatinine 3.22 H (0.52-1.04) mg/dL Total Bilirubin 1.7 H (0.2-1.3) mg/dL Stool Occult Blood Positive H (Negative) Assessment and Plan Assessment: #) Acute blood loss anemia. Presenting hemoglobin noted to be 8.8 with MCV of 86.9. No prior hemoglobin seen on file. I suspect the patient may have a com ponent of gastropathy given her aspirin [address] abdomen pelvis revealing possible blood in the cecum and ascending colon. She had a colonoscopy last performed in February 2022 which had revealed grade 3 hemorrhoids tubular adenoma in the ascending colon and tubular adenoma in the transverse colon. At this time we will continue IV provide 40 mg twice daily. Hold aspirin 81 mg daily usage. N.p.o. except for medications. Appreciate GI input as would benefit from EGD #) kdigo stage 3 acute kidney injury, likely prerenal vs. intrarenal from atn. CT abd pelvis negative for hydronephrosis. No prior renal function on file. Presenting creatinine to be 3.22 with potassium 6.2. In addition her serum CO2 is noted to be 12. Continue bicarb drip with D5W at 100 cc an hour. Renally adjust medications consider risk versus benefits of nephrotoxic agents. check another poc glucose later tonight to ensure she is not hypoglycemic. #) Hypothyroid dz continue home levothyroxine 75 mcg daily #) Primary htn hold home lisinopril for now given hyperkalemia #) Hyperlipidemia continue home atorvastatin 10 mg hs Dispo: med/surge dvt ppx: scds Time with Patient: Greater than 30
[2024-07-05 23:51] LABS: Appearance,Urine Clear (Clear); Bilirubin,Urine Negative (Negative); Blood,Urine Negative (Negative); Color,Urine Colorless; Glucose,Urine (UA) Negative (Negative); Ketones,Urine Negative (Negative); Leukocyte Esterase,Urine Negative (Negative); Nitrite,Urine Negative (Negative); Protein,Urine Negative (Negative); Specific Gravity,Urine 1.008 (1.001-1.035); Urobilinogen,Urine <2.0 mg/dL (<2.0)
[2024-07-06] MEDS: PANTOPRAZOLE 40 MG/10 ML VIAL IVP SCH (00:03)
[2024-07-06 02:21] LABS: Potassium 5.4 mmol/L (3.5-5.1)
[2024-07-06 02:34] LABS: Anion Gap 13 mmol/L; Calcium 10.2 mg/dL (8.4-10.2); Carbon Dioxide 13 mmol/L (22-30); Chloride 110 mmol/L (98-107); Glucose 100 mg/dL (74-99); Sodium 136 mmol/L (137-145)
[2024-07-06 02:38] LABS: Blood Urea Nitrogen 104 mg/dL (7-17)
[2024-07-06 06:56] LABS: HCT 22.3 % (37.2-46.3); HGB 7.6 g/dL (12.0-15.0); MCH 29.7 pg (27.0-32.0); MCHC 34.1 g/dL (32.0-37.0); MCV 87.1 fL (80.0-97.0); Mean Platelet Volume 10.7 fL (9.5-12.2); Platelet Count 153 10*3/uL (140-440); RBC 2.56 10*6/uL (4.10-5.20); RDW 13.9 % (11.5-14.5); WBC 8.24 10*3/uL (4.50-10.00)
[2024-07-06 07:18] LABS: ALT 27 U/L (4-34); AST 22 U/L (14-36); African American GFR (CKD) 20 (>60 ml/min/1.73 sqM); Albumin 3.7 g/dL (3.5-5.0); Alkaline Phosphatase 71 U/L (38-126); Anion Gap 12 mmol/L; Blood Urea Nitrogen 97 mg/dL (7-17); Calcium 10.1 mg/dL (8.4-10.2); Carbon Dioxide 14 mmol/L (22-30); Chloride 111 mmol/L (98-107); Glucose 91 mg/dL (74-99); Non-African American GFR(CKD) 18 (>60 ml/min/1.73 sqM); Potassium 5.4 mmol/L (3.5-5.1); Sodium 137 mmol/L (137-145); Total Bilirubin 1.7 mg/dL (0.2-1.3); Total Protein 6.9 g/dL (6.3-8.2)
[2024-07-06] MEDS: LEVOTHYROXINE 75 MCG TAB PO SCH (10:29)
[2024-07-06 10:47] LABS: % Iron Saturation 27.92 (12.00-45.00)
[2024-07-06] MEDS ORDERED: ATORVASTATIN 10 MG TAB PO SCH (11:00)
--- NOTE | 2024-07-06 11:36 | P.PN ---
Subjective Progress Note Date: 07/06/24 Hospital Course: A 74-year-old female with past medical history of hypertension, hypothyroidism, hemorrhoids stage III, presented to the hospital on 07/05 with rectal bleeding. She has been noticing bright red blood on her toilet paper over the past couple weeks, yesterday she had to pick bloody bowel movements feeling the toilet prompting her to come to the hospital for further evaluation. She denies any associated abdominal pain, nausea, vomiting. She denies heavy alcohol use, she is on aspirin for primary prevention due to previously abnormal stress test but normal heart cath. When she had presented to hospital she was noted to be hemodynamically stable with the initial blood pressure noted be 141/76. She was 98% room air and heart rate was 97. In addition she was afebrile with a temperature of 97.9. Lab work obtained in the ER revealed a white blood cell count of 10.4 hemoglobin is 8.4 MCV was 87 platelet count was 164. CMP had shown a potassium of 6.2 CO2 of 12 BUN of 104 and creatinine of 3.22. Stool Hemoccult was positive CT abdomen pelvis without contrast had revealed high density layering debris in the cecum and ascending colon concerning for gastrointestinal hemorrhage. There is a left adrenal myolipoma along with a left ovarian cyst. The patient was then treated with calcium gluconate 1 g along with insulin and dextrose. She was then started on insulin/dextrose along with Lokelma. She says that she was put on water pills for lower extremity edema in the last 60 pounds, however, her kidney function has been worsening and the doses of diuretics were adjusted by her PCP. Patient was admitted for further evaluation of GI bleeding, RAFA, hyperkalemia, G I, nephrology consulted. 07/06: Seen and examined in the ER, not in acute distress, head regular bowel movement with some drops of bright red blood this morning, no abdominal pain. She gets lightheaded upon standing, BP 102/53, heart rate in 70s, afebrile, satting well. Hemoglobin dropped down to 7.6, potassium 5.4, bicarb 14, creatinine improved to 0.57, ferritin 366, iron 74, total bilirubin elevated 1.7. Pertinent positives and negatives as discussed above, a complete review of systems was performed and all other systems are negative. Vitals Signs Reviewed. General: [nontoxic], [no distress], [appears at stated age] Derm: [warm], [dry] Head: [atraumatic], [normocephalic], [symmetric] Eyes: [EOMI], [no lid lag], [anicteric sclera] Mouth: [no lip lesion], [mucus membranes moist] Cardiovascular: [S1S2 reg], [no murmur] Lungs: [CTA bilateral], [no rhonchi, no rales] , [no accessory muscle use] Abdominal: [soft], [ nontender to palpation], [no guarding], [no appreciable organomegaly] Ext: [no gross muscle atrophy], [[no contractures] Neuro: [ CN II-XI grossly intact], [no focal neuro deficits] Psych: [Alert], [oriented], [appropriate affect] Assessment and Plan: Acute blood loss anemia secondary to lower GI bleed in a patient with grade [address] abdomen revealing post old blood in the cecum and ascending colon - Hemoglobin continues to drop down to 7.6 this morning, repeat hemoglobin later in the evening, transfuse for hemoglobin less than 7 -Continue IV Protonix 40 mg twice daily - Continue holding aspirin for now - GI consulted, appreciate recommendations - Plan for EGD and colonoscopy on 07/07, n.p.o. 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, unknown baseline Metabolic acidosis secondary to above Hyperkalemia secondary to above -Nephrology consulted, appreciate recommendations -Status post hyperkalemia Duglas todd -Monitor BMP daily, ordered additional potassium for this afternoon -Continue bicarb drip at 100 cc/h - Holding lisinopril Primary hypertension - Holding lisinopril in the settings of RAFA Hypothyroidism -Continue home levothyroxine 75 mg daily Hyperlipidemia -Continue home Lipitor 40 daily Incidental findings of left adrenal myolipoma along with a left ovarian cyst - Follow-up with PCP I have reviewed the following digital marketing consultant notes: ER, H&P I have reviewed the results of the following tests: CBC, CMP, iron profile I have ordered the following tests: Daily CBC, BMP, liver profile to monitor for hemoglobin, acidosis, kidney function, elevated total bilirubin I have discussed the care of this patient with the following independent historian: RN I have independently interpreted the following test below: As above I have discussed the management of this patient with the following physician: DVT ppx: SCD Code status: Full code Anticipated discharge place: TBD Anticipated discharge time: TBD Objective - Vital Signs Vital signs: Vital Signs Temp 98.4 F 07/06/24 06:26 Pulse 77 07/06/24 08:22 Resp 18 07/06/24 08:22 BP 122/42 07/06/24 08:22 Pulse Ox 99 07/06/24 08:22 FiO2 Intake & Output 07/05/24 07/06/24 07/06/24 18:59 06:59 18:59 Output Total 1300 Balance -1300 Weight 121.109 kg Output: Urine 1300 Uretheral (Niño) 800 - Labs CBC & Chem 7: 07/06/24 06:14 07/06/24 06:14 Labs: Abnormal Lab Results - Last 24 Hours (Table) 07/05/24 07/05/24 07/05/24 Range/Units 19:06 20:33 20:33 WBC 10.44 H (4.50-10.00) 10*3/uL RBC 2.97 L (4.10-5.20) 10*6/uL Hgb 8.8 L (12.0-15.0) g/dL Hct 25.8 L (37.2-46.3) % Neutrophils # 8.06 H (1.80-7.70) 10*3/uL Eosinophils # 0.52 H (0.04-0.35) 10*3/uL APTT (22.0-30.0) sec Sodium (137-145) mmol/L Potassium 6.2 H* (3.5-5.1) mmol/L Chloride 109 H (98-107) mmol/L Carbon Dioxide 12 L (22-30) mmol/L BUN 104 H* (7-17) mg/dL Creatinine 3.22 H (0.52-1.04) mg/dL Glucose (74-99) mg/dL Transferrin (204.0-354.0) mg/dL Ferritin (10.0-291.0) ng/mL Total Bilirubin 1.7 H (0.2-1.3) mg/dL Creatine Kinase (30-135) U/L Stool Occult Blood Positive H (Negative) 07/05/24 07/06/24 07/06/24 Range/Units 23:08 01:28 06:14 WBC (4.50-10.00) 10*3/uL RBC (4.10-5.20) 10*6/uL Hgb (12.0-15.0) g/dL Hct (37.2-46.3) % Neutrophils # (1.80-7.70) 10*3/uL Eosinophils # (0.04-0.35) 10*3/uL APTT 20.9 L (22.0-30.0) sec Sodium 136 L (137-145) mmol/L Potassium 5.4 H (3.5-5.1) mmol/L Chloride 110 H (98-107) mmol/L Carbon Dioxide 13 L (22-30) mmol/L BUN 104 H* (7-17) mg/dL Creatinine 2.86 H (0.52-1.04) mg/dL Glucose 100 H (74-99) mg/dL Transferrin (204.0-354.0) mg/dL Ferritin 366.0 H (10.0-291.0) ng/mL Total Bilirubin (0.2-1.3) mg/dL Creatine Kinase (30-135) U/L Stool Occult Blood (Negative) 07/06/24 07/06/24 07/06/24 Range/Units 06:14 06:14 06:19 WBC (4.50-10.00) 10*3/uL RBC 2.56 L (4.10-5.20) 10*6/uL Hgb 7.6 L (12.0-15.0) g/dL Hct 22.3 L (37.2-46.3) % Neutrophils # (1.80-7.70) 10*3/uL Eosinophils # (0.04-0.35) 10*3/uL APTT (22.0-30.0) sec Sodium (137-145) mmol/L Potassium 5.4 H (3.5-5.1) mmol/L Chloride 111 H (98-107) mmol/L Carbon Dioxide 14 L (22-30) mmol/L BUN 97 H (7-17) mg/dL Creatinine 2.57 H (0.52-1.04) mg/dL Glucose (74-99) mg/dL Transferrin 189.0 L (204.0-354.0) mg/dL Ferritin (10.0-291.0) ng/mL Total Bilirubin 1.7 H (0.2-1.3) mg/dL Creatine Kinase (30-135) U/L Stool Occult Blood (Negative) 07/06/24 Range/Units 10:55 WBC (4.50-10.00) 10*3/uL RBC (4.10-5.20) 10*6/uL Hgb (12.0-15.0) g/dL Hct (37.2-46.3) % Neutrophils # (1.80-7.70) 10*3/uL Eosinophils # (0.04-0.35) 10*3/uL APTT (22.0-30.0) sec Sodium (137-145) mmol/L Potassium (3.5-5.1) mmol/L Chloride (98-107) mmol/L Carbon Dioxide (22-30) mmol/L BUN (7-17) mg/dL Creatinine (0.52-1.04) mg/dL Glucose (74-99) mg/dL Transferrin (204.0-354.0) mg/dL Ferritin (10.0-291.0) ng/mL Total Bilirubin (0.2-1.3) mg/dL Creatine Kinase 141 H (30-135) U/L Stool Occult Blood (Negative)
--- NOTE | 2024-07-06 11:39 | P.NPCON ---
History of Present Illness - Reason for Consult acute renal failure - History of Present Illness Reason for consultation: Acute kidney injury History of present illness: Patient is a 74-year-old female seen in renal consultation for acute kidney injury. Patient was seen and examined in the emergency room. Unknown baseline renal function. Patient states has been told by her primary care physician that her renal function has been weak. She does not see a advertising coordinator outpatient. Creatinine on admission was 3.22 yesterday and is 2.57 this morning. Patient came to the hospital due to rectal bleeding. Patient states she has been noticing blood in her stool for about 2 weeks now. She has noticed red blood in the toilet and has also noticed blood upon wiping. She admits to mild diarrhea at times. Potassium was 6.2 on admission and is improved to 5.4 this morning. Patient states she was initially on lisinopril and hydrochlorothiazide but due to worsening function test. By her primary care physician. She was subsequently started on Lasix as well as Aldactone. She denies chest pain or shortness of breath. Has been voiding. No gross hematuria or dysuria. Denies history of diabetes or coronary artery disease. Denies use of nonsteroidals. Currently has a Niño catheter. Nonoliguric. Vital signs are stable. General: No acute distress. HEENT: Head exam is unremarkable. LUNGS: No audible rhonchi or wheezes. HEART: Rate and Rhythm are regular. ABDOMEN: Nontender. EXTREMITITES: No edema. Past Medical History Past Medical History: Hyperlipidemia, Hypertension, Osteoarthritis (OA), Thyroid Disorder History of Any Multi-Drug Resistant Organisms: None Reported Past Surgical History: Cholecystectomy, Orthopedic Surgery, Tonsillectomy Additional Past Surgical History / Comment(s): ORIF RIGHT ARM, LIVER BIOPSY, bilateral cataract surgery, colonoscopy. Past Anesthesia/Blood Transfusion Reactions: Postoperative Nausea & Vomiting (PONV) Past Psychological History: No Psychological Hx Reported Smoking Status: Never smoker Past Alcohol Use History: None Reported Past Drug Use History: None Reported - Past Family History Mother Family Medical History: Cancer Sister(s) Family Medical History: Cancer Brother(s) Family Medical History: Cancer, Pulmonary Embolus Medications and Allergies Home Medications Medication Instructions Recorded Confirmed Type Levothyroxine Sodium [Synthroid] 75 mcg PO AC-BRKFST 02/27/15 07/06/24 History Acetaminophen Tab [Tylenol Tab] 1,000 mg PO Q6HR PRN 07/06/24 07/06/24 History Atorvastatin Calcium [Lipitor] 40 mg PO W/SUPPER 07/06/24 07/06/24 History Furosemide [Lasix] 20 mg PO HS 07/06/24 07/06/24 History Semaglutide [Ozempic] 0.25 mg SQ TU 07/06/24 07/06/24 History Spironolactone [Aldactone] 50 mg PO HS 07/06/24 07/06/24 History lisinopriL [Zestril] 10 mg PO W/SUPPER 07/06/24 07/06/24 History Allergies Allergy/AdvReac Type Severity Reaction Status Date / Time No Known Allergies Allergy Verified 07/06/24 08:40 Physical Exam Vitals: Vital Signs Temp Pulse Resp BP Pulse Ox 07/06/24 08:22 77 18 122/42 99 07/06/24 06:26 98.4 F 79 18 102/53 98 07/06/24 04:31 98.5 F 78 15 138/58 96 07/06/24 02:33 98.6 F 81 19 96/44 97 07/05/24 23:12 96 19 114/50 97 07/05/24 22:16 98 07/05/24 22:06 100 07/05/24 18:06 97.9 F 97 18 141/76 99 Intake and Output 07/05/24 07/06/24 07/06/24 22:59 06:59 14:59 Output Total 1300 Balance -1300 Output: Urine 1300 Uretheral (Niño) 800 Other: Weight 121.109 kg Results - Lab Results Most recent lab results Calcium 10.1 mg/dL (8.4-10.2) 07/06/24 06:14 07/06/24 06:14 07/06/24 06:14 Assessment and Plan Plan: Assessment: 1. Acute kidney injury secondary to ATN secondary to hypovolemia. Unknown baseline renal function. Creatinine 3.1 admission and is 2.57 today. Concern for underlying chronic kidney disease. Will need to establish baseline renal function. No hydronephrosis noted on kidney ultrasound. 2. GI bleed. Gastroenterology consulted. 3. Metabolic acidosis secondary to acute kidney injury. 4. Hyperkalemia secondary to acute kidney injury, acidosis and Aldactone. Plan: Maintain bicarb drip. Continue to hold diuretics. IV DDAVP x 1 dose today. Continue to monitor renal function and urine output. Thank you for the consultation. I will continue to follow the patient with you during her hospital stay.
[2024-07-06 11:41] LABS: HCT 23.3 % (37.2-46.3); HGB 7.8 g/dL (12.0-15.0); MCH 29.4 pg (27.0-32.0); MCHC 33.5 g/dL (32.0-37.0); MCV 87.9 fL (80.0-97.0); Mean Platelet Volume 11.1 fL (9.5-12.2); Platelet Count 158 10*3/uL (140-440); RBC 2.65 10*6/uL (4.10-5.20); RDW 14.2 % (11.5-14.5); WBC 8.42 10*3/uL (4.50-10.00)
[2024-07-06] MEDS: ATORVASTATIN 40 MG TAB PO SCH ×2 (12:07→20:28)
[2024-07-06] MEDS: DESMOPRESSIN ACETATE 26 MCG in SODIUM CHLORIDE 0.9% 50 ML IVPB ONE (12:41)
--- NOTE | 2024-07-06 14:42 | P.CONS ---
History of Present Illness - Reason for Consult Consult date: 07/06/24 GI bleed Requesting physician: Nirav Holland - Chief Complaint Rectal bleeding - History of Present Illness This is a pleasant 74-year-old female with a past medical history of hypertension, hyperlipidemia, hypothyroidism, chronic kidney disease who had presented to the emergency department yesterday evening with complaints of rectal bleeding. Gastroenterology was consulted for GI bleed. Patient has been having intermittent rectal bleeding. States about 2 to 3 weeks ago she was having some bleeding mostly with wiping she know she has a history of hemorrhoids so she thought it was secondary to that then at 1 point she had filled the toilet with blood but then it stat. Yesterday she started having bloody bowel movements that she reports as dark black, maroon and bright red. Denied any abdominal pain associated with the rectal bleeding but did state that she was having some rectal pain. She is not on any anticoagulation. Last colonoscopy was [address] Lin with findings of colon polyps status post polypectomy with biopsy of tubular adenoma. Patient's presenting hemoglobin 8.8 with drop to 7.6. Last episode of rectal bleeding was yesterday evening. She had a CT of the abdomen pelvis with contrast that reported high density layering debris within the cecum and ascending colon concerning for gastrointestinal hemorrhage. Review of Systems REVIEW OF SYSTEMS: CARDIOPULMONARY: No chest pain or shortness of breath. Gastrointestinal: No abdominal pain. No nausea or vomiting. No hematemesis, coffee-ground emesis. Rectal bleeding, bloody bowel movements reported as dark and's bright red. GENITOURINARY: No dysuria or hematuria. MUSCULOSKELETAL: Reports normal range of motion., SKIN: No rashes. No jaundice. ENDOCRINE: No chills, fevers. No excessive weight gain or loss. No polydipsia or polyuria. PSYCHIATRIC: Unremarkable. NEUROLOGY: No change in mental status. Denies dizziness, headache. ENT: Vision unremarkable. CONSTITUTIONAL: No recent weight loss. No fever, chills, night sweats. Past Medical History Past Medical History: Hyperlipidemia, Hypertension, Osteoarthritis (OA), Thyroid Disorder History of Any Multi-Drug Resistant Organisms: None Reported Past Surgical History: Cholecystectomy, Orthopedic Surgery, Tonsillectomy Additional Past Surgical History / Comment(s): ORIF RIGHT ARM, LIVER BIOPSY, bilateral cataract surgery, colonoscopy. Past Anesthesia/Blood Transfusion Reactions: Postoperative Nausea & Vomiting (PONV) Past Psychological History: No Psychological Hx Reported Smoking Status: Never smoker Past Alcohol Use History: None Reported Past Drug Use History: None Reported - Past Family History Mother Family Medical History: Cancer Sister(s) Family Medical History: Cancer Brother(s) Family Medical History: Cancer, Pulmonary Embolus Medications and Allergies Home Medications Medication Instructions Recorded Confirmed Type Levothyroxine Sodium [Synthroid] 75 mcg PO AC-BRKFST 02/27/15 07/06/24 History Acetaminophen Tab [Tylenol Tab] 1,000 mg PO Q6HR PRN 07/06/24 07/06/24 History Atorvastatin Calcium [Lipitor] 40 mg PO W/SUPPER 07/06/24 07/06/24 History Furosemide [Lasix] 20 mg PO HS 07/06/24 07/06/24 History Semaglutide [Ozempic] 0.25 mg SQ TU 07/06/24 07/06/24 History Spironolactone [Aldactone] 50 mg PO HS 07/06/24 07/06/24 History lisinopriL [Zestril] 10 mg PO W/SUPPER 07/06/24 07/06/24 History Allergies Allergy/AdvReac Type Severity Reaction Status Date / Time No Known Allergies Allergy Verified 07/06/24 08:40 Physical Exam Vitals: Vital Signs Temp Pulse Resp BP Pulse Ox 07/06/24 12:40 76 18 109/67 96 07/06/24 08:22 77 18 122/42 99 07/06/24 06:26 98.4 F 79 18 102/53 98 07/06/24 04:31 98.5 F 78 15 138/58 96 07/06/24 02:33 98.6 F 81 19 96/44 97 07/05/24 23:12 96 19 114/50 97 07/05/24 22:16 98 07/05/24 22:06 100 07/05/24 18:06 97.9 F 97 18 141/76 99 Intake and Output 07/05/24 07/06/24 07/06/24 22:59 06:59 14:59 Output Total 1300 Balance -1300 Output: Urine 1300 Uretheral (Niño) 800 Other: Weight 121.109 kg General appearance: The patient is alert, oriented, appears in no acute distress. HET: Head is normocephalic and atraumatic. Conjunctiva pink. Sclera anicteric. Neck: Supple without lymphadenopathy. Trachea midline. Heart: Regular. Lungs: Equal expansion, normal respiratory effort. Abdomen: Soft, nontender, nondistended. Skin: No rashes. No jaundice. Extremities: Normal skin color and turgor. No pedal edema. Neurological: No focal deficits. Alert and oriented x3. Results CBC & Chem 7: 07/06/24 10:55 07/06/24 06:14 Labs: Abnormal Lab Results - Last 24 Hours (Table) 07/05/24 07/05/24 07/05/24 Range/Units 19:06 20:33 20:33 WBC 10.44 H (4.50-10.00) 10*3/uL RBC 2.97 L (4.10-5.20) 10*6/uL Hgb 8.8 L (12.0-15.0) g/dL Hct 25.8 L (37.2-46.3) % Neutrophils # 8.06 H (1.80-7.70) 10*3/uL Eosinophils # 0.52 H (0.04-0.35) 10*3/uL APTT (22.0-30.0) sec Sodium (137-145) mmol/L Potassium 6.2 H* (3.5-5.1) mmol/L Chloride 109 H (98-107) mmol/L Carbon Dioxide 12 L (22-30) mmol/L BUN 104 H* (7-17) mg/dL Creatinine 3.22 H (0.52-1.04) mg/dL Glucose (74-99) mg/dL Transferrin (204.0-354.0) mg/dL Ferritin (10.0-291.0) ng/mL Total Bilirubin 1.7 H (0.2-1.3) mg/dL Creatine Kinase (30-135) U/L Stool Occult Blood Positive H (Negative) 07/05/24 07/06/24 07/06/24 Range/Units 23:08 01:28 06:14 WBC (4.50-10.00) 10*3/uL RBC (4.10-5.20) 10*6/uL Hgb (12.0-15.0) g/dL Hct (37.2-46.3) % Neutrophils # (1.80-7.70) 10*3/uL Eosinophils # (0.04-0.35) 10*3/uL APTT 20.9 L (22.0-30.0) sec Sodium 136 L (137-145) mmol/L Potassium 5.4 H (3.5-5.1) mmol/L Chloride 110 H (98-107) mmol/L Carbon Dioxide 13 L (22-30) mmol/L BUN 104 H* (7-17) mg/dL Creatinine 2.86 H (0.52-1.04) mg/dL Glucose 100 H (74-99) mg/dL Transferrin (204.0-354.0) mg/dL Ferritin 366.0 H (10.0-291.0) ng/mL Total Bilirubin (0.2-1.3) mg/dL Creatine Kinase (30-135) U/L Stool Occult Blood (Negative) 07/06/24 07/06/24 07/06/24 Range/Units 06:14 06:14 06:19 WBC (4.50-10.00) 10*3/uL RBC 2.56 L (4.10-5.20) 10*6/uL Hgb 7.6 L (12.0-15.0) g/dL Hct 22.3 L (37.2-46.3) % Neutrophils # (1.80-7.70) 10*3/uL Eosinophils # (0.04-0.35) 10*3/uL APTT (22.0-30.0) sec Sodium (137-145) mmol/L Potassium 5.4 H (3.5-5.1) mmol/L Chloride 111 H (98-107) mmol/L Carbon Dioxide 14 L (22-30) mmol/L BUN 97 H (7-17) mg/dL Creatinine 2.57 H (0.52-1.04) mg/dL Glucose (74-99) mg/dL Transferrin 189.0 L (204.0-354.0) mg/dL Ferritin (10.0-291.0) ng/mL Total Bilirubin 1.7 H (0.2-1.3) mg/dL Creatine Kinase (30-135) U/L Stool Occult Blood (Negative) 07/06/24 07/06/24 Range/Units 10:55 10:55 WBC (4.50-10.00) 10*3/uL RBC 2.65 L (4.10-5.20) 10*6/uL Hgb 7.8 L (12.0-15.0) g/dL Hct 23.3 L (37.2-46.3) % Neutrophils # (1.80-7.70) 10*3/uL Eosinophils # (0.04-0.35) 10*3/uL APTT (22.0-30.0) sec Sodium (137-145) mmol/L Potassium (3.5-5.1) mmol/L Chloride (98-107) mmol/L Carbon Dioxide (22-30) mmol/L BUN (7-17) mg/dL Creatinine (0.52-1.04) mg/dL Glucose (74-99) mg/dL Transferrin (204.0-354.0) mg/dL Ferritin (10.0-291.0) ng/mL Total Bilirubin (0.2-1.3) mg/dL Creatine Kinase 141 H (30-135) U/L Stool Occult Blood (Negative) Comments: CT abdomen pelvis without contrast reports high density layering debris within the cecum and ascending colon concerning for gastrointestinal hemorrhage. Surgical consultation recommended. 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 Left ovarian cyst measuring up to 44 mm. Consider follow-up with ultrasound imaging for stability. Assessment and Plan (1) GI bleed Narrative/Plan: 74-year-old female presenting with intermittent rectal bleeding that persisted starting yesterday with bowel movements. Patient reports is dark and bright red. Has history of colonoscopy 3 years ago with findings including grade 3 internal hemorrhoids, external hemorrhoids, sigmoid diverticulosis with pandiverticulosis, colon polyps with biopsy reporting tubular adenoma. Unclear if this is possible upper versus lower GI bleed as patient is reporting dark stool blood as well as bright red blood. May be looking at rectal bleeding from hemorrhoids however need to consider possible upper GI source. Will plan for bowel prep this evening and proceeding with upper endoscopy and colonoscopy tomorrow. Current Visit: Yes Status: Acute Code(s): K92.2 - GASTROINTESTINAL HEMORRHAGE, UNSPECIFIED SNOMED Code(s): 42734293 (2) Acute on chronic renal failure Current Visit: Yes Status: Acute Code(s): N17.9 - ACUTE KIDNEY FAILURE, UNSPECIFIED; N18.9 - CHRONIC KIDNEY DISEASE, UNSPECIFIED SNOMED Code(s): 907166324 (3) Normocytic normochromic anemia Current Visit: Yes Status: Acute Code(s): D64.9 - ANEMIA, UNSPECIFIED SNOMED Code(s): 77994889 Plan: 1. Continue symptomatic and supportive care 2. Patient may have clear liquid diet, n.p.o. after midnight 3. Protonix 40 mg daily for GI prophylaxis 4. Iron profile and ferritin ordered 5. Bowel prep this evening 6. Plan for upper endoscopy and colonoscopy tomorrow 7. Continue with recommendations from nephrology 8. Rest of medical management per primary medical team Thank you for this consultation, we will continue to follow. Dr. Basim Fontaine I agree with the dictator's note, documented as a scribe by Darline Ojeda.
[2024-07-06 15:10] LABS: HCT 22.6 % (37.2-46.3); HGB 7.7 g/dL (12.0-15.0); MCH 29.7 pg (27.0-32.0); MCHC 34.1 g/dL (32.0-37.0); MCV 87.3 fL (80.0-97.0); Mean Platelet Volume 10.5 fL (9.5-12.2); Platelet Count 157 10*3/uL (140-440); RBC 2.59 10*6/uL (4.10-5.20); WBC 9.47 10*3/uL (4.50-10.00)
[2024-07-06 15:24] LABS: African American GFR (CKD) 22 (>60 ml/min/1.73 sqM); Anion Gap 11 mmol/L; Blood Urea Nitrogen 86 mg/dL (7-17); Calcium 9.5 mg/dL (8.4-10.2); Carbon Dioxide 17 mmol/L (22-30); Chloride 112 mmol/L (98-107); Glucose 120 mg/dL (74-99); Non-African American GFR(CKD) 19 (>60 ml/min/1.73 sqM); Potassium 4.9 mmol/L (3.5-5.1); Sodium 140 mmol/L (137-145)
[2024-07-06] MEDS: PEG 3350 (236 GM/BTL) + LYTES 4,000 ML BOTTLE PO ONE (18:29)
[2024-07-07 02:20] LABS: Reticulocyte % 1.06 % (0.10-1.80)
[2024-07-07 06:34] LABS: HCT 21.4 % (37.2-46.3); HGB 7.2 g/dL (12.0-15.0); MCH 29.1 pg (27.0-32.0); MCHC 33.6 g/dL (32.0-37.0); MCV 86.6 fL (80.0-97.0); Mean Platelet Volume 10.5 fL (9.5-12.2); Platelet Count 144 10*3/uL (140-440); RBC 2.47 10*6/uL (4.10-5.20); WBC 8.05 10*3/uL (4.50-10.00)
[2024-07-07 06:44] LABS: ALT 22 U/L (4-34); AST 23 U/L (14-36); African American GFR (CKD) 32 (>60 ml/min/1.73 sqM); Albumin 3.5 g/dL (3.5-5.0); Alkaline Phosphatase 68 U/L (38-126); Anion Gap 9 mmol/L; Blood Urea Nitrogen 67 mg/dL (7-17); Calcium 9.1 mg/dL (8.4-10.2); Carbon Dioxide 25 mmol/L (22-30); Chloride 104 mmol/L (98-107); Glucose 97 mg/dL (74-99); Magnesium 1.7 mg/dL (1.6-2.3); Non-African American GFR(CKD) 28 (>60 ml/min/1.73 sqM); Potassium 4.6 mmol/L (3.5-5.1); Sodium 138 mmol/L (137-145); Total Bilirubin 2.3 mg/dL (0.2-1.3); Total Protein 6.5 g/dL (6.3-8.2)
[2024-07-07] MEDS: SODIUM CHLORIDE 0.9% 500 ML 500 ML IV ONE (08:12)
[2024-07-07] MEDS ORDERED: PROPOFOL 10 MG/ML 20 ML VIAL IV ONE (08:17)
--- NOTE | 2024-07-07 08:38 | P.PCN ---
Date of Procedure: 07/07/24 Procedure(s) Performed: Brief history: Patient is a pleasant 74-year-old white female admitted to hospital with acute GI bleed. She started having intermittent maroon-colored stools for the last 3 to 4 days duration but yesterday had several episodes. Hemoglobin was 8.6 and dropped to 7.2 g/dL. She is scheduled for an upper endoscopy as well as colonoscopy to evaluate further. Procedure performed: Esophagogastroduodenoscopy Colonoscopy Preoperative diagnosis: Acute GI bleed Anesthesia: MAC Procedure: After informed consent was obtained from the patient was brought into the endoscopy unit and IV sedation was administered by anesthesia under continuous monitoring. Initially upper endoscopy was done. The Olympus GF 160 video endoscope was inserted inserted into the mouth and esophagus intubated without any difficulty and was gradually advanced into the stomach and duodenum and carefully examined. The bulb and second part of the duodenum appeared normal. The scope was then withdrawn into the stomach adequately insufflated with air and upon careful examination the antrum and body, cardia and fundus appeared normal. The scope was then withdrawn into the esophagus. The GE junction was located at 40 cm to the incisors. Small hiatal hernia noted. There were 2 erosions in the distal esophagus consistent with LA grade B reflux esophagitis. Rest of the esophagus appeared normal. Patient tolerated the procedure well. At this time the patient continued to remain sedation. Initial digital rectal examination was normal. Olympus CF 160 video colonoscope was then inserted into the rectum and gradually advanced to the cecum without any difficulty. Careful examination was performed as the scope was gradually being withdrawn. The prep was excellent. No active bleeding noted. The cecum, ascending colon, transverse colon, descending colon, sigmoid colon and rectum appeared normal. Scattered sigmoid diverticulosis. Retroflexion was performed in the rectum and grade 2 internal hemorrhoids were noted. Patient tolerated the procedure well. Impression: 1. Upper endoscopy revealed small hiatal hernia and LA grade B reflux esophagitis 2. Colonoscopy revealed scattered sigmoid diverticulosis and grade 2 internal hemorrhoids. No active bleeding noted. Recommendations: Findings of this examination were discussed with the patient as well as her family. Recent episode of bleeding possibly related to sigmoid diverticulosis or internal hemorrhoids. She was advised to be on a high-fiber diet. Diet will be advanced as tolerated. If her hemoglobin remains stable she can be discharged home today or tomorrow.
--- NOTE | 2024-07-07 11:27 | P.PN ---
Subjective Patient is seen in follow-up for acute kidney injury. Renal function improving. On bicarb drip. Nonoliguric. Denies chest pain or shortness of breath. Vital signs are stable. General: No acute distress. HEENT: Head exam is unremarkable. LUNGS: No audible rhonchi or wheezes. HEART: Rate and Rhythm are regular. ABDOMEN: Nontender. EXTREMITITES: No edema. Objective - Vital Signs Vital signs: Vital Signs Temp 98.2 F 07/07/24 08:00 Pulse 81 07/07/24 08:00 Resp 18 07/07/24 08:00 BP 109/68 07/07/24 08:00 Pulse Ox 97 07/07/24 08:00 FiO2 Intake & Output 07/06/24 07/07/24 07/07/24 18:59 06:59 18:59 Intake Total 300 Output Total 1600 950 Balance -1600 -950 300 Weight 98.5 kg Intake: IV 300 Output: Urine 1600 950 Uretheral (Niño) 1600 Other: Voiding Method Bedside Commode # Bowel Movements 4 - Labs CBC & Chem 7: 07/07/24 06:20 07/07/24 06:20 Labs: Abnormal Lab Results - Last 24 Hours (Table) 07/06/24 07/06/24 07/06/24 Range/Units 10:55 10:55 14:58 RBC 2.65 L 2.59 L (4.10-5.20) 10*6/uL Hgb 7.8 L 7.7 L (12.0-15.0) g/dL Hct 23.3 L 22.6 L (37.2-46.3) % Chloride (98-107) mmol/L Carbon Dioxide (22-30) mmol/L BUN (7-17) mg/dL Creatinine (0.52-1.04) mg/dL Glucose (74-99) mg/dL Transferrin 186.0 L (204.0-354.0) mg/dL Total Bilirubin (0.2-1.3) mg/dL 07/06/24 07/07/24 07/07/24 Range/Units 14:58 06:20 06:20 RBC 2.47 L (4.10-5.20) 10*6/uL Hgb 7.2 L (12.0-15.0) g/dL Hct 21.4 L (37.2-46.3) % Chloride 112 H (98-107) mmol/L Carbon Dioxide 17 L (22-30) mmol/L BUN 86 H 67 H (7-17) mg/dL Creatinine 2.39 H 1.77 H (0.52-1.04) mg/dL Glucose 120 H (74-99) mg/dL Transferrin (204.0-354.0) mg/dL Total Bilirubin 2.3 H (0.2-1.3) mg/dL Assessment and Plan Plan: Assessment: 1. Acute kidney injury secondary to ATN secondary to hypovolemia. Unknown baseline renal function. Creatinine 3.1 admission and is 1.77 today. Concern for underlying chronic kidney disease. Will need to establish baseline renal function. No hydronephrosis noted on kidney ultrasound. 2. GI bleed. Upper endoscopy showed reflux esophagitis and colonoscopy showed internal hemorrhoids. No active bleeding was noted. Hemoglobin 7.2. Received IV DDAVP this admission. 3. Metabolic acidosis secondary to acute kidney injury. Improved with bicarb drip. 4. Hyperkalemia secondary to acute kidney injury, acidosis and Aldactone. Resolved. Plan: Stop bicarb drip. Add normal saline at 70 cc an hour. Continue to hold diuretics. Continue to monitor renal function and urine output.
--- NOTE | 2024-07-07 11:35 | P.PN ---
Subjective Progress Note Date: 07/07/24 Hospital Course: A 74-year-old female with past medical history of hypertension, hypothyroidism, hemorrhoids stage III, presented to the hospital on 07/05 with rectal bleeding. She has been noticing bright red blood on her toilet paper over the past couple weeks, yesterday she had to pick bloody bowel movements feeling the toilet prompting her to come to the hospital for further evaluation. She denies any associated abdominal pain, nausea, vomiting. She denies heavy alcohol use, she is on aspirin for primary prevention due to previously abnormal stress test but normal heart cath. When she had presented to hospital she was noted to be hemodynamically stable with the initial blood pressure noted be 141/76. She was 98% room air and heart rate was 97. In addition she was afebrile with a temperature of 97.9. Lab work obtained in the ER revealed a white blood cell count of 10.4 hemoglobin is 8.4 MCV was 87 platelet count was 164. CMP had shown a potassium of 6.2 CO2 of 12 BUN of 104 and creatinine of 3.22. Stool Hemoccult was positive CT abdomen pelvis without contrast had revealed high density layering debris in the cecum and ascending colon concerning for gastrointestinal hemorrhage. There is a left adrenal myolipoma along with a left ovarian cyst. The patient was then treated with calcium gluconate 1 g along with insulin and dextrose. She was then started on insulin/dextrose along with Lokelma. She says that she was put on water pills for lower extremity edema in the last 60 pounds, however, her kidney function has been worsening and the doses of diuretics were adjusted by her PCP. Patient was admitted for further evaluation of GI bleeding, RAFA, hyperkalemia, G I, nephrology consulted. 07/06: Seen and examined in the ER, not in acute distress, head regular bowel movement with some drops of bright red blood this morning, no abdominal pain. She gets lightheaded upon standing, BP 102/53, heart rate in 70s, afebrile, satting well. Hemoglobin dropped down to 7.6, potassium 5.4, bicarb 14, creatinine improved to 0.57, ferritin 366, iron 74, total bilirubin elevated 1.7. 07/07: Seen and examined after colonoscopy and EGD, complaining of some abdominal distention and gas, dry throat. No more bowel movements reported. Colonoscopy revealed scattered sigmoid diverticulosis and grade 2 internal hemorrhoids with no active bleeding, EGD showed small hiatal hernia and LA grade B reflux esophagitis. The episode of bleeding believed to be related to sigmoid di verticulosis or internal hemorrhoids, was advised to be on high-fiber diet by GI. Hemoglobin continues to drop to 7.2 (8.8 on admission). Kidney function is improving, nephrology following, discontinued bicarb drip and started normal saline at 70 cc/h instead, continue to hold diuretics.Received IV DDAVP this admission. Will keep patient overnight for continuous IV fluid infusion,, monitoring of kidney function and hemoglobin Pertinent positives and negatives as discussed above, a complete review of systems was performed and all other systems are negative. Vitals Signs Reviewed. General: [nontoxic], [no distress], [appears at stated age] Derm: [warm], [dry] Head: [atraumatic], [normocephalic], [symmetric] Eyes: [EOMI], [no lid lag], [anicteric sclera] Mouth: [no lip lesion], [mucus membranes moist] Cardiovascular: [S1S2 reg], [no murmur] Lungs: [CTA bilateral], [no rhonchi, no rales] , [no accessory muscle use] Abdominal: [Distended], [ nontender to palpation], [no guarding], [no appreciable organomegaly] Ext: [no gross muscle atrophy], [[no contractures] Neuro: [ CN II-XI grossly intact], [no focal neuro deficits] Psych: [Alert], [oriented], [appropriate affect] Assessment and Plan: Acute blood loss anemia secondary to diverticulosis versus grade 2 hemorrhoids - Hemoglobin continues to drop down to 7.2 this morning, repeat CBC in the morning, transfuse for hemoglobin less than 7 -Continue IV Protonix 40 mg twice daily - Continue holding aspirin for now - GI consulted, appreciate recommendations - High-fiber diet recommended at discharge, patient is currently on regular diet - Iron profile reviewed,, iron is borderline, could benefit from daily ferrous sulfate 325 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 -Monitor BMP daily, - Holding lisinopril Primary hypertension - Holding lisinopril in the settings of RAFA Hypothyroidism -Continue home levothyroxine 75 mg daily Hyperlipidemia -Continue home Lipitor 40 daily Incidental findings of left adrenal myolipoma along with a left ovarian cyst - Follow-up with PCP I have reviewed the following managed security sales consultant notes: GI, procedure note, nephrology I have reviewed the results of the following tests: CBC, CMP I have ordered the following tests: Daily CBC, BMP, liver profile to monitor for hemoglobin, acidosis, kidney function, elevated total bilirubin I have discussed the care of this patient with the following independent historian: I have independently interpreted the following test below: As above I have discussed the management of this patient with the following physician: DVT ppx: SCD Code status: Full code Anticipated discharge place: TBD Anticipated discharge time: TBD Objective - Vital Signs Vital signs: Vital Signs Temp 98.2 F 07/07/24 11:05 Pulse 93 07/07/24 11:05 Resp 18 07/07/24 11:05 BP 137/69 07/07/24 11:05 Pulse Ox 94 L 07/07/24 11:05 FiO2 Intake & Output 07/06/24 07/07/24 07/07/24 18:59 06:59 18:59 Intake Total 300 Output Total 1600 950 Balance -1600 -950 300 Weight 98.5 kg Intake: IV 300 Output: Urine 1600 950 Uretheral (Niño) 1600 Other: Voiding Method Bedside Commode # Bowel Movements 4 - Labs CBC & Chem 7: 07/07/24 06:20 07/07/24 06:20 Labs: Abnormal Lab Results - Last 24 Hours (Table) 07/06/24 07/06/24 07/06/24 Range/Units 10:55 10:55 14:58 RBC 2.65 L 2.59 L (4.10-5.20) 10*6/uL Hgb 7.8 L 7.7 L (12.0-15.0) g/dL Hct 23.3 L 22.6 L (37.2-46.3) % Chloride (98-107) mmol/L Carbon Dioxide (22-30) mmol/L BUN (7-17) mg/dL Creatinine (0.52-1.04) mg/dL Glucose (74-99) mg/dL Transferrin 186.0 L (204.0-354.0) mg/dL Total Bilirubin (0.2-1.3) mg/dL 07/06/24 07/07/24 07/07/24 Range/Units 14:58 06:20 06:20 RBC 2.47 L (4.10-5.20) 10*6/uL Hgb 7.2 L (12.0-15.0) g/dL Hct 21.4 L (37.2-46.3) % Chloride 112 H (98-107) mmol/L Carbon Dioxide 17 L (22-30) mmol/L BUN 86 H 67 H (7-17) mg/dL Creatinine 2.39 H 1.77 H (0.52-1.04) mg/dL Glucose 120 H (74-99) mg/dL Transferrin (204.0-354.0) mg/dL Total Bilirubin 2.3 H (0.2-1.3) mg/dL
[2024-07-07] MEDS: SODIUM CHLORIDE 0.9% 1,000 ML IV SCH (12:03)
[2024-07-07] MEDS: ACETAMINOPHEN TAB 325 MG TAB PO PRN (14:43)
[2024-07-07] MEDS: ONDANSETRON 4 MG/2 ML VIAL IVP PRN (15:02)
[2024-07-07 20:12] LABS: HCT 21.1 % (37.2-46.3); HGB 7.2 g/dL (12.0-15.0); MCH 29.5 pg (27.0-32.0); MCHC 34.1 g/dL (32.0-37.0); MCV 86.5 fL (80.0-97.0); Mean Platelet Volume 10.3 fL (9.5-12.2); Platelet Count 142 10*3/uL (140-440); RBC 2.44 10*6/uL (4.10-5.20); RDW 13.9 % (11.5-14.5); WBC 8.71 10*3/uL (4.50-10.00)
[2024-07-08 05:47] LABS: HCT 22.6 % (37.2-46.3); HGB 7.5 g/dL (12.0-15.0); MCH 29.2 pg (27.0-32.0); MCHC 33.2 g/dL (32.0-37.0); MCV 87.9 fL (80.0-97.0); Mean Platelet Volume 11.1 fL (9.5-12.2); Platelet Count 149 10*3/uL (140-440); RBC 2.57 10*6/uL (4.10-5.20); RDW 13.9 % (11.5-14.5); WBC 9.21 10*3/uL (4.50-10.00)
[2024-07-08 06:13] LABS: African American GFR (CKD) 38 (>60 ml/min/1.73 sqM); Anion Gap 9 mmol/L; Blood Urea Nitrogen 40 mg/dL (7-17); Calcium 8.8 mg/dL (8.4-10.2); Carbon Dioxide 24 mmol/L (22-30); Chloride 101 mmol/L (98-107); Glucose 86 mg/dL (74-99); Magnesium 1.5 mg/dL (1.6-2.3); Non-African American GFR(CKD) 33 (>60 ml/min/1.73 sqM); Potassium 4.3 mmol/L (3.5-5.1); Sodium 134 mmol/L (137-145)
[2024-07-08] MEDS: MAGNESIUM SULFATE-D5W PMX 1 GM in DEXTROSE/WATER 1 100ML.BAG IVPB SCH (07:48)
--- NOTE | 2024-07-08 11:34 | P.PN ---
Subjective Progress Note Date: 07/08/24 74 year old F with PMH of HTN, HLD, Hypothyroid presented to the ED for rectal bleeding. In the ED she underwent extensive evaluation. BP 147/76, R 97.9F, HR 97, RR 18, 99% on RA. CBC, Coag panel, CMP significant for WBC 10.44, RBC 2.97, Hg 8.8, Hct 25.8, APTT 20.9, K 6.2, Cl 109, bicarb 12, BUN 104, Cr 3.22, T. Bili 1.7. Mag 1.7. Lactic acid 0.9. UA neg. Stool occult positive. CT AP showed left adrenal myelolipoma, ovarian cyst measuring 44 mm. GI consulted, underwent EGD and C-scope showed reflux esophagitis, sigmoid diverticulosus and internal hemorrhoids. Nephrology consulted for RAFA on CKD, received IV DDAVP x1 dose, started on bicarb infusion which was discontinued on 07/07. 07/08 Patient was seen and examined. Reports nausea and dry heaving with breakfast. CBC and BMP significant for RBC 2.57, Hg 7.5, Hct 22.6, Na 134, BUN 40, Cr 1.52. Mag 1.5. Case discussed with Dr. Lizama at bedside. General: non toxic, no distress, appears older than stated age Derm: warm, dry Head: atraumatic, normocephalic, symmetric Mouth: no lip lesion, mucus membranes moist Cardiovascular: S1 S2 reg. + murmur. Lungs: Clear to auscultation bilaterally, no accessory muscle use Ext: no gross muscle atrophy, trace edema, no contractures Neuro: No focal neurologic deficits. Psych: Alert and oriented. + Niño Based on my assessment of this patient, this patient meets a high complexity level of care. Acute blood loss anemia secondary to diverticulosis versus grade 2 hemorrhoids: Protonix 40 mg IV BID. Iron panel showing Fe 74, Ferritin 366. Holding ASA. GI on board. Nausea and vomiting likely related to esophagitis: Protonix as above. Zofran 4 mg IV Q6H PRN. Start Carafate 1g PO BID with meals. 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 NS at 70 cc/hr. Nephrology on board. Hypomagnesemia: Replace via protocol. Primary hypertension: BP 119/61. Holding lisinopril in the settings of RAFA. Hypothyroidism: Levothyroxine 75 mcg PO QD. Hyperlipidemia: Lipitor 40 mg PO QD. Incidental findings of left adrenal myolipoma along with a left ovarian cyst: Outpatient follow-up with PCP. Resolved: Hyperkalemia, metabolic acidosis DC Niño and attempt voiding trial. Start carafate for nausea and dry heaves. Possible DC later on today or tomorrow depending on ability to tolerate PO inta ke. CODE STATUS: FULL CODE DVT Prophylaxis: SCD GI Prophylaxis: Protonix IV BID Designated medical POA if patient is not able to make medical decisions for themselves: I have reviewed the following international travel consultant notes: Nephrology. I have reviewed the results of the following tests: CBC, BMP, Mag. I have ordered the following tests: CBC, BMP and Mag in the AM if not discharged. I have discussed the care of this patient with the following independent historian: RANGEL. I have independently interpreted the following test below: I have discussed the management of this patient with the following physician: Dr. Lizama Objective - Vital Signs Vital signs: Vital Signs Temp 98.5 F 07/08/24 06:50 Pulse 80 07/08/24 06:50 Resp 17 07/08/24 06:50 BP 119/61 07/08/24 06:50 Pulse Ox 95 07/08/24 06:50 FiO2 Intake & Output 07/07/24 07/08/24 07/08/24 18:59 06:59 18:59 Intake Total 300 Output Total 550 820 Balance -250 -820 Weight 94.5 kg Intake: IV 300 Output: Urine 550 820 Other: Voiding Method Indwelling Catheter - Labs CBC & Chem 7: 07/08/24 04:44 07/08/24 04:44 Labs: Abnormal Lab Results - Last 24 Hours (Table) 07/07/24 07/08/24 07/08/24 Range/Units 20:01 04:44 04:44 RBC 2.44 L 2.57 L (4.10-5.20) 10*6/uL Hgb 7.2 L 7.5 L (12.0-15.0) g/dL Hct 21.1 L 22.6 L (37.2-46.3) % Sodium 134 L (137-145) mmol/L BUN 40 H (7-17) mg/dL Creatinine 1.52 H (0.52-1.04) mg/dL Magnesium 1.5 L (1.6-2.3) mg/dL
[2024-07-08] MEDS: SUCRALFATE 1 GM TAB PO SCH (12:14)
--- NOTE | 2024-07-08 12:19 | P.PN ---
Subjective Patient is seen for follow-up for acute kidney injury. Renal function has improved. Serum creatinine decreased to 1.5 today. Maintained on IV fluids. Objective - Vital Signs Vital signs: Vital Signs Temp 98.5 F 07/08/24 06:50 Pulse 80 07/08/24 06:50 Resp 17 07/08/24 06:50 BP 119/61 07/08/24 06:50 Pulse Ox 95 07/08/24 06:50 FiO2 Intake & Output 07/07/24 07/08/24 07/08/24 18:59 06:59 18:59 Intake Total 300 Output Total 550 820 Balance -250 -820 Weight 94.5 kg Intake: IV 300 Output: Urine 550 820 Other: Voiding Method Indwelling Catheter - Exam Patient is awake, comfortable, no acute distress Examination of the heart S1 and S2 Examination of the lungs bilateral breath sounds are heard Abdomen is soft nontender Examination of lower extremity shows edema 1+ - Labs CBC & Chem 7: 07/08/24 04:44 07/08/24 04:44 Labs: Abnormal Lab Results - Last 24 Hours (Table) 07/07/24 07/08/24 07/08/24 Range/Units 20:01 04:44 04:44 RBC 2.44 L 2.57 L (4.10-5.20) 10*6/uL Hgb 7.2 L 7.5 L (12.0-15.0) g/dL Hct 21.1 L 22.6 L (37.2-46.3) % Sodium 134 L (137-145) mmol/L BUN 40 H (7-17) mg/dL Creatinine 1.52 H (0.52-1.04) mg/dL Magnesium 1.5 L (1.6-2.3) mg/dL Assessment and Plan Assessment: 1. Acute kidney injury secondary to ATN secondary to hypovolemia. Unknown baseline renal function. Creatinine 3.1 admission and is 1.5 today. Concern for underlying chronic kidney disease. Will need to establish baseline renal function. No hydronephrosis noted on kidney ultrasound. 2. GI bleed. Upper endoscopy showed reflux esophagitis and colonoscopy showed internal hemorrhoids. No active bleeding was noted. Hemoglobin 7.2. Received IV DDAVP this admission. 3. Metabolic acidosis secondary to acute kidney injury. Improved with bicarb drip. 4. Hyperkalemia secondary to acute kidney injury, acidosis and Aldactone. Resolved. Plan: May continue with IV fluids. Decrease rate if tolerating oral intake Repeat labs in a.m.
[2024-07-09 09:59] LABS: HCT 23.2 % (37.2-46.3); HGB 7.6 g/dL (12.0-15.0); MCHC 32.8 g/dL (32.0-37.0); MCV 88.5 FL (80.0-97.0); Mean Platelet Volume 11.1 FL (9.5-12.2); NRBC Per 100 WBC 0 X 10*3/uL (0.00-0.01); Platelet Count 155 X 10*3/uL (140-440); RBC 2.62 X 10*6/uL (4.10-5.20); RDW 13.5 % (11.5-14.5); WBC 10.13 X 10*3/uL (4.50-10.00)
[2024-07-09 11:01] LABS: BUN/Creat Ratio 21.71 Ratio (12.00-20.00); Blood Urea Nitrogen 30.4 mg/dL (9.0-27.0); Carbon Dioxide 21.5 mmol/L (21.6-31.8); Chloride 100 mmol/L (96-109); Glucose 89 mg/dL (70-110); Magnesium 2.2 mg/dL (1.5-2.4); Potassium 4.3 mmol/L (3.5-5.5); Sodium 132 mmol/L (135-145)
[2024-07-09 11:02] LABS: Calcium 8.5 mg/dL (8.7-10.3)
--- NOTE | 2024-07-09 11:35 | P.PN ---
Subjective Patient is seen for follow-up for acute kidney injury. Renal function has improved. Serum creatinine decreased to 1.4 today. Maintained on IV fluids. Feeling better today Objective - Vital Signs Vital signs: Vital Signs Temp 98.2 F 07/09/24 01:17 Pulse 74 07/09/24 01:17 Resp 17 07/09/24 01:17 BP 147/82 07/09/24 01:17 Pulse Ox 95 07/09/24 01:17 FiO2 Intake & Output 07/08/24 07/09/24 07/09/24 18:59 06:59 18:59 Intake Total 1560 Output Total 236 Balance 1560 -236 Weight 106.5 kg Intake: Oral 1560 Output: Post Void Residual 236 Other: Voiding Method Indwelling Catheter Bedside Commode # Voids 2 # Bowel Movements 1 2 - Exam Patient is awake, comfortable, no acute distress Examination of the heart S1 and S2 Examination of the lungs bilateral breath sounds are heard Abdomen is soft nontender Examination of lower extremity shows no significant edema - Labs CBC & Chem 7: 07/09/24 03:44 07/09/24 03:44 Labs: Abnormal Lab Results - Last 24 Hours (Table) 07/09/24 07/09/24 Range/Units 03:44 03:44 WBC 10.13 H (4.50-10.00) X 10*3/uL RBC 2.62 L (4.10-5.20) X 10*6/uL Hgb 7.6 L (12.0-15.0) g/dL Hct 23.2 L (37.2-46.3) % Sodium 132 L (135-145) mmol/L Carbon Dioxide 21.5 L (21.6-31.8) mmol/L BUN 30.4 H (9.0-27.0) mg/dL Est GFR (CKD-EPI) 39 L (>=60) BUN/Creatinine Ratio 21.71 H (12.00-20.00) Ratio Calcium 8.5 L (8.7-10.3) mg/dL Assessment and Plan Assessment: 1. Acute kidney injury secondary to ATN secondary to hypovolemia. Unknown baseline renal function. Creatinine 3.1 admission and is 1.4 today. Concern for underlying chronic kidney disease. Will need to establish baseline renal function. No hydronephrosis noted on kidney ultrasound. 2. GI bleed. Upper endoscopy showed reflux esophagitis and colonoscopy showed internal hemorrhoids. No active bleeding was noted. Hemoglobin 7.2. Received IV DDAVP this admission. 3. Metabolic acidosis secondary to acute kidney injury. Improved with bicarb drip. 4. Hyperkalemia secondary to acute kidney injury, acidosis and Aldactone. Resolved. Plan: May continue with IV fluids. Encouraged to increase oral intake Repeat labs in a.m.
--- NOTE | 2024-07-09 11:42 | P.DS ---
Providers Date of admission: 07/06/24 00:17 Expected date of discharge: 07/09/24 Attending physician: Sumanth Liu MD Consults: 07/05/24 23:11 Consult Physician Urgent Consulting Provider: Raul Ramirez Consult Reason/Comments: Acute on chronic renal failure Do you want consulting provider notified?: Already Contacted Consult Physician Urgent Consulting Provider: Kelsey Fontaine Consult Reason/Comments: GI bleed Do you want consulting provider notified?: Yes, Notify in am Primary care physician: [facility] Course: 74 year old F with PMH of HTN, HLD, Hypothyroid presented to the ED for rectal bleeding. In the ED she underwent extensive evaluation. BP 147/76, R 97.9F, HR 97, RR 18, 99% on RA. CBC, Coag panel, CMP significant for WBC 10.44, RBC 2.97, Hg 8.8, Hct 25.8, APTT 20.9, K 6.2, Cl 109, bicarb 12, BUN 104, Cr 3.22, T. Bili 1.7. Mag 1.7. Lactic acid 0.9. UA neg. Stool occult positive. CT AP showed left adrenal myelolipoma, ovarian cyst measuring 44 mm. GI consulted, underwent EGD and C-scope showed reflux esophagitis, sigmoid diverticulosus and internal hemorrhoids. Nephrology consulted for ARFA on CKD, received IV DDAVP x1 dose, started on bicarb infusion which was discontinued on 07/07. 07/08 Patient was seen and examined. Reports nausea and dry heaving with breakfast. CBC and BMP significant for RBC 2.57, Hg 7.5, Hct 22.6, Na 134, BUN 40, Cr 1.52. Mag 1.5. Case discussed with Dr. Lizama at bedside. 07/09 Patient was seen and examined. Tolerating small amount of PO intake. Niño catheter discontinued and urinating freely. CBC and BMP significant for WBC 10.13, RBC 2.63, Hg 7.6, Hct 23.2, Na 132, bicarb 21.5, BUN 30.4, Ca 8.5. Mag 2.2. Discharge Plan: Prescription for Protonix 40 mg PO BID sent to pharmacy. Stop Lasix and Lisinopril and decrease Aldactone from 50 to 25 mg PO QD. Antihypertensive medication to be adjusted by PCP. Follow up with PCP within 1-2 days, GI within 1 week and Nephrology within 1 week of discharge. General: non toxic, no distress, appears older than stated age Derm: warm, dry Head: atraumatic, normocephalic, symmetric Mouth: no lip lesion, mucus membranes moist Cardiovascular: S1 S2 reg. + murmur. Lungs: Clear to auscultation bilaterally, no accessory muscle use Ext: no gross muscle atrophy, trace edema, no contractures Neuro: No focal neurologic deficits. Psych: Alert and oriented. 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 Patient Condition at Discharge: Stable Plan - Discharge Summary Discharge Rx Participant: No New Discharge Prescriptions: New Pantoprazole [Protonix] 40 mg PO BID #60 tab Continue Levothyroxine Sodium [Synthroid] 75 mcg PO AC-[id number] Acetaminophen Tab [Tylenol] 1,000 mg PO Q6HR PRN PRN Reason: Pain Atorvastatin Calcium [Lipitor] 40 mg PO W/SUPPER Semaglutide [Ozempic] 0.25 mg SQ TU Changed Spironolactone [Aldactone] 25 mg PO HS #0 Discontinued Furosemide [Lasix] 20 mg PO HS lisinopriL [Zestril] 10 mg PO W/SUPPER Discharge Medication List Levothyroxine Sodium [Synthroid] 75 mcg PO AC-BRKFST 02/27/15 [History] Acetaminophen Tab [Tylenol] 1,000 mg PO Q6HR PRN 07/06/24 [History] Atorvastatin Calcium [Lipitor] 40 mg PO W/SUPPER 07/06/24 [History] Semaglutide [Ozempic] 0.25 mg SQ TU 07/06/24 [History] Pantoprazole [Protonix] 40 mg PO BID #60 tab 07/09/24 [Rx] Spironolactone [Aldactone] 25 mg PO HS #0 07/09/24 [Rx] Follow up Appointment(s)/Referral(s): Elvira Lizama MD [STAFF PHYSICIAN] - 1 Week [facility] [NON-STAFF] - Joes Enrique Franco MD [Primary Care Provider] - 1-2 days Kelsey Fontaine MD [STAFF PHYSICIAN] - 1 Week Patient Instructions/Handouts: Hiatal Hernia (DC), Diverticulosis (DC), Diverticulosis Diet (GEN) Discharge/Stand Alone Forms: Who Do I Call? Discharge Disposition: HOME SELF-CARE
[2024-07-09 13:19] VITALS: BP 152/78; PULSE 95; RESP 18; TEMP 98.6
== END 2024-07-09 13:58 | disposition home or self-care (01) | DRG 377 ==
LOC: EC 18:05 → 3SCARD 07-06 00:17 → 4SSUR 07-08 01:02
PROVIDERS: ADMIT Internal Medicine; ATTEND Internal Medicine
PROC: 0DJ08ZZ Inspection of Upper Intestinal Tract, Via Natural or Artificial Opening Endoscopic (ICD-10-PCS; principal; 2024-07-07 15:30)
PROC: 0DJD8ZZ Inspection of Lower Intestinal Tract, Via Natural or Artificial Opening Endoscopic (ICD-10-PCS; 2024-07-07 15:30)
DX: K57.31 Diverticulosis of large intestine without perforation or abscess with bleeding (principal); K21.01 Gastro-esophageal reflux disease with esophagitis, with bleeding; N17.0 Acute kidney failure with tubular necrosis; E87.20 Acidosis, unspecified; D62 Acute posthemorrhagic anemia; N18.32 Chronic kidney disease, stage 3b; I12.9 Hypertensive chronic kidney disease with stage 1 through stage 4 chronic kidney disease, or unspecified chronic kidney disease; E03.9 Hypothyroidism, unspecified; K64.1 Second degree hemorrhoids; E83.42 Hypomagnesemia; E78.5 Hyperlipidemia, unspecified; E87.5 Hyperkalemia; D17.79 Benign lipomatous neoplasm of other sites; K44.9 Diaphragmatic hernia without obstruction or gangrene; K31.9 Disease of stomach and duodenum, unspecified; E86.1 Hypovolemia; Z79.890 Hormone replacement therapy; Z79.82 Long term (current) use of aspirin; Z79.899 Other long term (current) drug therapy
CPT/HCPCS: 36415; 43235; 45378; 74176; 80048; 80053; 81003; 82272; 82550; 82728; 83540; 83550; 83605; 83735; 84466; 85025; 85027; 85045; 85610; 85730; 93005; 94640; 96365; 96366; 96367; 96368; 96375; 96376; 99285